=== PATIENT | female | born 1985 | race African-American/Black ===

== ENCOUNTER 2020-07-07 21:41 | Emergency (ER) | payer BC, SELFPAY ==
[2020-07-07 21:43] VITALS: BP 143/86; PULSE 109; RESP 18; TEMP 39.5; O2SAT 96; BMI 39.5
[2020-07-07 22:00] VITALS: BP 144/86; PULSE 112; O2SAT 94
[2020-07-07 22:30] VITALS: BP 126/73; PULSE 106; O2SAT 94
--- NOTE | 2020-07-07 22:45 | XR_ITS ---
PROCEDURE INFORMATION: Exam: XR Chest Exam date and time: 07/07/2020 10:45 PM Age: 35 years old Clinical indication: Condition or disease; Patient HX: Covid, body aches TECHNIQUE: Imaging protocol: XR of the chest. Views: 1 view. Total images: 1 COMPARISON: No relevant prior studies available. FINDINGS: Lungs: Nonspecific bibasilar opacities, concerning for pneumonia/atypical pneumonia, possibly COVID-19. Pleural spaces: Unremarkable. No pleural effusion. No pneumothorax. Heart/Mediastinum: Unremarkable. No cardiomegaly. Bones/joints: Unremarkable. IMPRESSION: Nonspecific bibasilar opacities, concerning for pneumonia/atypical pneumonia, possibly COVID-19.
[2020-07-07 23:00] LABS: Adenovirus,PCR Not Detected (NotDetected); Basophils # 0.1 K/mm3 (0-0.2); Basophils % 1.1 % (0.1-2.0); Bordetella Pertussis Not Detected (NotDetected); Chlamydophila Pneumoniae, PCR Not Detected (NotDetected); Coronavirus 229E Not Detected (NotDetected); Coronavirus NL63 Not Detected (NotDetected); Coronavirus OC43 Not Detected (NotDetected); Coronovirus HKU1,PCR Not Detected (NotDetected); Eosinophils % 0.2 % (0.1-12.0); Hemoglobin 13.5 g/dL (12.2-16.2); Human Metapneumovirus Not Detected (NotDetected); Influenza A, PCR Not Detected (NotDetected); Influenza AH1, 2009 Not Detected (NotDetected); Influenza AH1, PCR Not Detected (NotDetected); Influenza AH3,PCR Not Detected (NotDetected); Influenza B, PCR Not Detected (NotDetected); Lymphocytes # 0.7 K/mm3 (0.7-4.5); Lymphocytes % 15.1 % (10-50); Mean Corpuscular Hemoglobin 29.7 pg (27.0-31.2); Mean Platelet Volume 9.3 fl (7.4-10.4); Microscopic, Urine URINE MICROSCOPIC (MICROSCOPIC); Monocytes # 0.2 K/mm3 (0.1-1.0); Monocytes % 4.8 % (1.7-9.3); Mycoplasma Pneumoniae, PCR Not Detected (NotDetected); Neutrophils # 3.8 K/mm3 (1.8-7.8); Neutrophils % 78.8 % (37.0-80.0); Parainfluenza 1, PCR Not Detected (NotDetected); Parainfluenza 2, PCR Not Detected (NotDetected); Parainfluenza 3, PCR Not Detected (NotDetected); Parainfluenza 4, PCR Not Detected (NotDetected); Platelet Count 152 K/mm3 (142-424); Red Blood Count 4.55 M/mm3 (4.20-5.40); Respiratory Syncytial Virus Not Detected (NotDetected); Rhinovirus/Enterovirus Not Detected (NotDetected); White Blood Count 4.8 K/mm3 (4.8-10.8)
[2020-07-07 23:01] VITALS: BP 122/65; PULSE 113; O2SAT 94
[2020-07-07 23:03] LABS: Appearance,Urine CLEAR (Clear); Bilirubin,Urine Negative (Negative); Blood, Urine Negative (Negative); Color,Urine YELLOW (Yellow); Glucose,Urine (UA) Negative (Negative); Ketones,Urine Negative (Negative); Leukocyte Esterase,Urine Negative (Negative); Nitrate,Urine Negative (Negative); Protein,Urine Negative (Negative); Specific Gravity, Urine <= 1.005 (1.005-1.030); Urobilinogen,Urine 0.2 EU/dl (0.2)
[2020-07-07 23:04] LABS: Alanine Aminotransferase 32 U/L (12-78); Albumin Level 4.5 g/dl (3.5-5.0); Albumin/Globulin Ratio 1.4 (1.1-1.8); Alkaline Phosphatase 43 U/L (38-126); Anion Gap 11.2 mEq/L (5-15); Aspartate Amino Transferase 38 U/L (14-36); Bilirubin,Total 0.2 mg/dl (0.2-1.3); Blood Urea Nitrogen 5 mg/dl (7-17); Calcium 9.5 mg/dl (8.4-10.2); Carbon Dioxide 29 mmol/L (22.0-30.0); Chloride 101 mmol/L (98-107); Creatinine Clearance Estimated 211 mL/min (50-200); Estimated Glomerular Filt Rate 96 ml/min (>60); GFR (African American) 116 ML/MIN (>60); Globulin 3.3 g/dL (1.3-3.2); Glucose 112 mg/dl (74-100); Potassium 4.2 mmoL/L (3.5-5.1); Sodium 137 mmol/L (136-145); Total Protein,Serum 7.8 g/dl (6.3-8.2); Urine Pregnancy, HCG Qual. Negative (Negative)
[2020-07-07 23:09] LABS: C-Reactive Protein 48.8 mg/L (0-4)
[2020-07-07 23:15] LABS: Bacteria,Urine Trace /lpf; Squamous Epithelial Cell,Urine 50-100 #/hpf (0-5); WBC,Urine Occasional #/hpf (0-3)
[2020-07-07 23:24] LABS: Procalcitonin 1.91 ng/mL (0.0-2.0)
[2020-07-07 23:30] LABS: Erythrocyte Sedimentation Rate 34 mm/hr (0-20)
--- NOTE | 2020-07-07 23:39 | HMH.EDFEV ---
ED Disposition Clinical Impression: Acute COVID-19 Disposition: Home, Self-Care Condition on Discharge: Good Instructions: DI for COVID-19 (Suspected or Confirmed ) Additional Instructions: fluids and see pcp for follow up Referrals: Fernie Lee [Primary Care Provider] - - Critical Care Critical Care Time: No Attestation: On 07/07/20, the high probability of a clinically significant, sudden or life threatening deterioration of the following system(s) required my full and direct attention, intervention and personal management. The time I documented below is in addition to time spent performing reported procedures but includes the following listed in this critical care notation. Medical Decision Making - Medical Records Medical records reviewed: Yes: I reviewed the patient's medical records. - Blayne Inquiry Pt receiving controlled substance: No Vital Signs: 07/07/20 21:43 07/07/20 23:01 Temperature 103.1 F H Temperature Source Oral Pulse Rate 113 H Pulse Rate [Right Radial] 109 H Respiratory Rate 18 Blood Pressure 122/65 Blood Pressure [Right Arm] 143/86 H Blood Pressure Mean [Right Arm] 105 Blood Pressure Source [Right Arm] Automatic Cuff Blood Pressure Position [Right Arm] Sitting 02 Sat by Pulse Oximetry 96 94 L Oxygen Delivery Method Room Air - Lab Data Lab results reviewed: Yes: I reviewed the patient's lab results. Lab Results 07/07/20 22:04: WBC 4.8, RBC 4.55, Hgb 13.5, Hct 41.0, MCV 90.0, MCH 29.7, MCHC 33.0, RDW 13.0, Plt Count 152, MPV 9.3, Neut % (Auto) 78.8, Lymph % (Auto) 15.1, [place] % (Auto) 4.8, Eos % (Auto) 0.2, Baso % (Auto) 1.1, Neut # (Auto) 3.8, Lymph # (Auto) 0.7, [place] # (Auto) 0.2, Eos # (Auto) 0.0, Baso # (Auto) 0.1, ESR 34 H 07/07/20 22:04: Sodium 137, Potassium 4.2, Chloride 101, Carbon Dioxide 29, Anion Gap 11.2, BUN 5 L, Creatinine 0.70, Estimated Creat Clear 211, Estimated GFR 96, Est GFR ( Amer) 116, Glucose 112 H, Calcium 9.5, Total Bilirubin 0.2, AST 38 H, ALT 32, Alkaline Phosphatase 43, C-Reactive Protein 48.8 H, Total Protein 7.8, Albumin 4.5, Globulin 3.3 H, Albumin/Globulin Ratio 1.4 07/07/20 22:04: Procalcitonin 1.91 07/07/20 22:04: Urine Color Yellow, Urine Appearance Clear, Urine pH 7.0, Ur Specific [place] <= 1.005, Urine Protein Negative, Urine Glucose (UA) Negative, Urine Ketones Negative, Urine Blood Negative, Urine Nitrate Negative, Urine Bilirubin Negative, Urine Urobilinogen 0.2, Ur Leukocyte Esterase Negative, Urine RBC None, Urine WBC Occasional, Ur Squamous Epith Cells 50-100, Urine Bacteria Trace 07/07/20 22:04: Urine HCG, Qual Negative Result diagrams: 07/07/20 22:04 07/07/20 22:04 Orders (Tests/Meds): ED MEDICATIONS Generic Name Dose Route Start Last Admin Trade Name Freq PRN Reason Stop Dose Admin Sodium Chloride 1,000 mls @ 999 mls/hr 07/07/20 22:45 07/07/20 22:45 Sod Chlor 0.9% 1000ml Bag IV 07/07/20 23:45 999 mls/hr .Q1H1M MASSIMO Administration Sodium Chloride 1,000 mls @ 999 mls/hr 07/07/20 23:45 07/07/20 23:47 Sod Chlor 0.9% 1000ml Bag IV 07/08/20 00:45 999 mls/hr .Q1H1M MASSIMO Administration Discontinued Medications Generic Name Dose Route Start Last Admin Trade Name Freq PRN Reason Stop Dose Admin Acetaminophen 1,000 mg 07/07/20 22:47 07/07/20 22:45 Acetaminophen 500mg Tab PO 07/07/20 22:48 1,000 mg ONCE ONE Administration Dexamethasone Sodium Phosphate 8 mg 07/07/20 22:45 07/07/20 23:57 Dexamethasone 4mg/Ml 1ml Vial IV 07/07/20 22:46 Not Given ONCE ONE Dexamethasone Sodium Phosphate 10 mg 07/07/20 22:45 07/07/20 22:45 Dexamethasone 4mg/Ml 5ml Mdv IV 07/07/20 22:46 10 mg ONCE ONE Administration Ibuprofen 600 mg 07/07/20 22:45 07/07/20 22:45 Ibuprofen 600 Mg Tablet PO 07/07/20 22:46 600 mg ONCE ONE Administration Ketorolac Tromethamine 30 mg 07/07/20 22:45 07/07/20 22:45 Ketorolac 30mg/Ml Vial IV 07/07/20 22:46 30 mg ONCE ONE Admini
[2020-07-08 00:26] VITALS: BP 112/65; PULSE 91; RESP 18; TEMP 37.2; O2SAT 96
[2020-07-08 00:32] LABS: Coronavirus 19, PCR Detected (NotDetected)
== END 2020-07-08 00:26 | disposition home or self-care (01) ==
PROVIDERS: Emergency Provider Emergency Medicine; PCP Nurse Practitioner Family
DX: U07.1 COVID-19 (principal)
CPT/HCPCS: 71045; 80053; 81001; 81025; 84145; 85025; 85651; 86140; 87581; 87633; 87798; 96365; 96366; 96375; 99283; J2405

== ENCOUNTER 2021-03-14 08:55 | Emergency (ER) | payer BC, SELFPAY ==
[2021-03-14 08:56] VITALS: BP 165/105; PULSE 93; RESP 16; TEMP 37.1; O2SAT 97; BMI 40.1
--- NOTE | 2021-03-14 09:10 | US_ITS ---
PROCEDURE INFORMATION: Exam: US Right Breast Limited Exam date and time: 03/14/2021 9:10 AM Age: 36 years old Clinical indication: Breast pain; Right; Additional info: Subq mass 1 month 5:00 outer position TECHNIQUE: Imaging protocol: Limited ultrasound of Right breast with image documentation, including axilla when performed. Exam focused on the search and evaluation for mass. COMPARISON: No relevant prior studies available. FINDINGS: Breast: Sonographic images of the right breast including the retroareolar region, all 4 quadrants and the axilla do not demonstrate any suspicious solid or cystic masses. Cursors were placed over what appears to be a prominent fat lobule in the 5 o'clock axis corresponding to the patient's complaint of a palpable abnormality. The area of interest measures 5.6 x 4.9 x 1.8 cm in dimension. It is possible the finding represents a lipoma. No architectural distortion or acoustical shadowing. No skin thickening or axillary adenopathy. IMPRESSION: A skin marker should be placed over the area of palpable concern followed by a diagnostic unilateral mammogram with spot compression views for full evaluation of the patient's complaint of a palpable abnormality. ASSESSMENT: BI-RADS Category 0: Incomplete- Need Additional Imaging Evaluation and/or Prior Mammograms for Comparison
--- NOTE | 2021-03-14 09:11 | ED_ITS ---
ED Disposition Clinical Impression: Breast mass in female, Elevated blood pressure reading Disposition: Home, Self-Care Condition on Discharge: Good Instructions: DI for Breast Mass -- Uncertain Cause, Essential Hypertension Additional Instructions: follow up general surgery Referrals: Fernie Lee [Primary Care Provider] - Matt Epperson MD [Staff Physician] - - Critical Care Critical Care Time: No Attestation: On , the high probability of a clinically significant, sudden or life threatening deterioration of the following system(s) required my full and direct attention, intervention and personal management. The time I documented below is in addition to time spent performing reported procedures but includes the following listed in this critical care notation. Medical Decision Making - Blayne Inquiry Pt receiving controlled substance: No Vital Signs: 03/14/21 08:56 Temperature 98.8 F Temperature Source Oral Pulse Rate [Radial] 93 H Respiratory Rate 16 Blood Pressure [Right Arm] 165/105 H Blood Pressure Mean [Right Arm] 125 Blood Pressure Position [Right Arm] Sitting 02 Sat by Pulse Oximetry 97 Oxygen Delivery Method Room Air Orders (Tests/Meds): ORDERS Category Date Time Status US breast RT limited Stat Exams 03/14/21 09:10 Ordered General Adult HPI - General Stated complaint: hard knot under right breast Time Seen by Provider: 03/14/21 09:11 Source of Information: Patient Limitations: No Limitations - History of Present Illness HPI narrative: rt breast mass 1 month Radiation: non-radiation Severity: mild Quality: constant Consistency: constant Relieving factors: none Exacerbating factors: none Associated symptoms: denies other symptoms - Related Data Allergies Allergy/AdvReac Type Severity Reaction Status Date / Time No Known Allergies Allergy Verified 07/07/20 22:29 [facility] History - Hepatitis A Screen Attestation statement:: This patient has been screened for Hepatitis A risk factors. ROS Obtained: Yes All systems reviewed & no additional complaints Physical Exam - General General appearance: alert, in no apparent distress - Chest Chest inspection: Present: other (rt medial inferior breast subq immobile mass non tender firm) - Respiratory Respiratory exam: Present: normal lung sounds bilaterally. Absent: respiratory distress, wheezes - Cardiovascular Cardiovascular exam: Present: regular rate, normal rhythm. Absent: bradycardia - Neurological Exam Neurological exam: Present: alert, oriented X3, CN II-XII intact - Skin Skin exam: Present: warm, intact, normal color. Absent: rash
[2021-03-14 09:59] VITALS: BP 142/74; PULSE 100; RESP 16; TEMP 36.6; O2SAT 98
== END 2021-03-14 10:01 | disposition home or self-care (01) ==
PROVIDERS: Emergency Provider Emergency Medicine; PCP Nurse Practitioner Family
DX: N63.0 Unspecified lump in unspecified breast (principal)
CPT/HCPCS: 76642; 99282

== ENCOUNTER → 2021-03-27 10:34 | Outpatient (CLI) | payer BC, SELFPAY ==
[2021-03-27 11:41] LABS: Basophils # 0.1 K/mm3 (0-0.2); Basophils % 0.8 % (0.1-2.0); Eosinophils # 0.2 K/mm3 (0.0-0.4); Eosinophils % 2.9 % (0.1-12.0); Hematocrit 41.1 % (37.0-47.0); Hemoglobin 13.2 g/dL (12.2-16.2); Lymphocytes # 1.8 K/mm3 (0.7-4.5); Lymphocytes % 22.5 % (10-50); Mean Corpuscular HGB Conc 32.1 g/dL (31.8-35.4); Mean Corpuscular Hemoglobin 30.1 pg (27.0-31.2); Mean Corpuscular Volume 93.9 fl (81-99); Monocytes # 0.6 K/mm3 (0.1-1.0); Monocytes % 7.5 % (1.7-9.3); Neutrophils # 5.4 K/mm3 (1.8-7.8); Neutrophils % 66.2 % (37.0-80.0); Platelet Count 265 K/mm3 (142-424); Red Blood Count 4.37 M/mm3 (4.20-5.40); Red Cell Distribution Width 13.5 % (11.5-17.5); White Blood Count 8.1 K/mm3 (4.8-10.8)
[2021-03-27 11:58] LABS: Chloride 104 mmol/L (98-107); Sodium 138 mmol/L (136-145)
[2021-03-27 11:59] LABS: Potassium 4.2 mmoL/L (3.5-5.1)
[2021-03-27 12:02] LABS: Anion Gap 8.2 mEq/L (5-15); Blood Urea Nitrogen 13 mg/dl (7-17); Calcium 9.4 mg/dl (8.4-10.2); Carbon Dioxide 30 mmol/L (22.0-30.0); Estimated Glomerular Filt Rate 114 ml/min (>60); GFR (African American) 138 ML/MIN (>60); Glucose 104 mg/dl (74-100)
== END ==
PROVIDERS: Visit Provider Surgery
DX: Z01.812 Encounter for preprocedural laboratory examination (principal); U07.1 COVID-19; D17.1 Benign lipomatous neoplasm of skin and subcutaneous tissue of trunk
CPT/HCPCS: 36415; 80048; 85025; C9803; U0003; U0005

== ENCOUNTER 2021-04-18 08:31 | Day surgery (SDC) | payer BC, SELFPAY ==
[2021-03-25 09:56] VITALS: BMI 39.4
[2021-03-27 15:15] LABS: HCG Qualitative, Serum Negative (Negative)
[2021-04-18] VITALS (11 sets, daily range): BP systolic 121–142; BP diastolic 50–90; PULSE 73–100; RESP 14–18; TEMP 36.2–36.9; O2SAT 96–99
[2021-04-18 08:47] LABS: Urine Pregnancy, HCG Qual. Negative (Negative)
--- NOTE | 2021-04-18 09:03 | HMH.ANESCL ---
[facility] Anesthesia Checklist - Patient Identification Patient Identification: Arm Band - Structural Data Admitted From: Home Planned Operative Procedure/s: Excision lipoma R chest wall Consent for Planned Operative Procedure(s) Verified: Yes - NPO Status Verified Time NPO: 00:00 - Additional verifications Anesthesia Reactions: No Hx Blood Transfusions: No Blood Transfusion Reaction: No - Airway Assessment C-Spine Mobility Assessed: Yes TMJ Mobility Assessed: Yes Dentition: Good Dentition - Neurological Assessment Level of Consciousness: Awake Hx Seizures: No Numbness or tingling in extremities: No - Anesthesia Plan Anesthesia Risk discussed: Yes Anesthesia Plan: Verified ASA Class: II Anesthesia Type: General [facility] History I have reviewed the patient's past medical history: Yes Medical History: Reports:: Hypertension Denies:: Cancer, Diabetes Mellitus Type 1, Diabetes Mellitus Type 2, Internal Pacemaker, MRSA, Seizures *Have you ever received a pneumonia vaccine?: No *Have you received a flu vaccine this season?: Yes Other Medical History: Denies: Blood Transfusion Reaction Anesthesia experience/problems:: None Other Surgeries: Yes: No Previous Surgery. No: Pacemaker Amputation: No Fractures: No - *Social History Last grade of school completed: Advanced degree Smoking Status: Current some day smoker Tobacco Type: cigarettes # Packs/Day (cigarettes): 1 Alcohol Intake: never Alcohol Intake Frequency:: a few times a month Substance Use Type: denies use *Occupational Status:: employed Housing: house *Travel in the last 8 weeks: None Family Hx:: No significant family history
--- NOTE | 2021-04-18 10:10 | P.OP_ITS ---
Date of procedure: 04/18/21 Pre-op Diagnosis:: Right chest lipoma (6cm) Post-op Diagnosis:: Same Procedure performed:: Excision of 6 cm right chest lipoma Surgeon:: Matt Epperson MD Offset Press Operator Apprentice(s):: Mandy Anesthesia: LMA Estimated blood loss (mL): 10 Operative findings:: Deep subcutaneous tissue lipomatous lesion excised in toto Operative note:: After informed consent was obtained the patient was taken to the operating room and placed in the supine position. General anesthesia with laryngeal mask airway was achieved. Her right chest was prepped and draped in a sterile fashion. After infiltration local anesthetic a slightly curvilinear incision was made overlying the palpable lesion (inferior/medial breast margin). The deep subcutaneous tissue was dissected with a combination of electrocautery and blunt dissection. A lipomatous lesion was carefully elevated and excised in toto. The lesion was passed off for pathologic evaluation. Electrocautery was utilized to achieve hemostasis. The deep subcutaneous tissue was reapproximated with interrupted 2-0 Vicryl. Skin was then closed with running 3-0 Stratafix. Dressings were applied and the patient was transferred to recovery in stable condition after removal of her laryngeal mask airway. Condition: stable Disposition: PACU Specimens:: Right chest lipoma Complications:: No immediate
--- NOTE | 2021-04-18 10:20 | P.PN_ITS ---
[facility] Anesthesia Record Part I Intake, IV Amount: 700 Estimated blood loss (mL): 5 Urine output (mL): 0 Blood Pressure: 121/50 SaO2: 98 Pulse Rate: 100 Respiratory Rate: 14 Temperature: 97.1 F Patient is:: Awake Stable to PACU at:: 10:19
--- NOTE | 2021-04-18 10:55 | SUR.PHASEI ---
1048- detailed report called to armond johnson in post op
--- NOTE | 2021-04-18 11:43 | HMH.ANESII ---
[facility] Anesthesia Record Part II Discharge Time: 10:49 Destination: Surgical Day Care (OP Surgery) PACU nurse assessment reviewed?: Yes Patient Condition:: Good Anesthesia Complications:: None Swallowing reflex intact?: Yes Cyanosis?: No Blood Pressure: 133/90 Pulse Rate: 85 Temperature: 97.5 F Mental Status: Alert & Oriented Pain level:: 0 Nausea and/or vomitting:: None Intake, IV Amount: 0
== END 2021-04-18 11:46 | disposition home or self-care (01) ==
LOC: OR 08:32
PROVIDERS: PCP Nurse Practitioner Family; Visit Provider Surgery
PROC: (CPT 11406; principal; 2021-04-18 10:00)
DX: D17.1 Benign lipomatous neoplasm of skin and subcutaneous tissue of trunk (principal); I10 Essential (primary) hypertension; Z72.0 Tobacco use; Z88.8 Allergy status to other drugs, medicaments and biological substances; Z79.899 Other long term (current) drug therapy
CPT/HCPCS: 11406; 12031; 81025; 84703; 96374; J2405

== ENCOUNTER 2021-05-06 19:49 | Emergency (ER) | payer BC, SELFPAY ==
[2021-05-06 19:50] VITALS: BP 147/102; PULSE 81; RESP 18; TEMP 37.3; O2SAT 97; BMI 40.3
[2021-05-06 20:40] LABS: Microscopic, Urine URINE MICROSCOPIC (MICROSCOPIC)
[2021-05-06 20:45] LABS: Appearance,Urine CLEAR (Clear); Bilirubin,Urine Negative (Negative); Blood, Urine Negative (Negative); Color,Urine YELLOW (Yellow); Glucose,Urine (UA) Negative (Negative); Ketones,Urine Negative (Negative); Leukocyte Esterase,Urine Negative (Negative); Nitrate,Urine Negative (Negative); PH,Urine 7.5 (5.0-8.5); Protein,Urine Negative (Negative); Urobilinogen,Urine 0.2 EU/dl (0.2)
--- NOTE | 2021-05-06 20:46 | HMH.EDUROGF ---
ED Disposition Clinical Impression: Vaginal foreign body Qualifiers: Encounter type: initial encounter Qualified Code(s): T19.2XXA - Foreign body in vulva and vagina, initial encounter Disposition: Home, Self-Care Condition on Discharge: Good Instructions: DI for Foreign Body in Vagina-Adult Additional Instructions: call pcp as needed Referrals: Fernie Lee [Primary Care Provider] - - Critical Care Critical Care Time: No Attestation: On 05/06/21, the high probability of a clinically significant, sudden or life threatening deterioration of the following system(s) required my full and direct attention, intervention and personal management. The time I documented below is in addition to time spent performing reported procedures but includes the following listed in this critical care notation. Medical Decision Making - Medical Records Medical records reviewed: Yes: I reviewed the patient's medical records. - Blayne Inquiry Pt receiving controlled substance: No Vital Signs: 05/06/21 19:50 Temperature 99.1 F Temperature Source Oral Pulse Rate [Right] 81 Respiratory Rate 18 Blood Pressure [Right Arm] 147/102 H Blood Pressure Mean [Right Arm] 117 02 Sat by Pulse Oximetry 97 - Lab Data Lab results reviewed: Yes: I reviewed the patient's lab results. Lab Results 05/06/21 20:23: Urine Color Yellow, Urine Appearance Clear, Urine pH 7.5, Ur Specific [place] 1.020, Urine Protein Negative, Urine Glucose (UA) Negative, Urine Ketones Negative, Urine Blood Negative, Urine Nitrate Negative, Urine Bilirubin Negative, Urine Urobilinogen 0.2, Ur Leukocyte Esterase Negative, Urine WBC 3-5, Ur Squamous Epith Cells Tntc, Urine Bacteria 1+, Urine Mucus 1+ 05/06/21 20:23: Urine HCG, Qual Negative 05/06/21 20:47: WBC 6.0, RBC 4.74, Hgb 14.4, Hct 44.9, MCV 94.7, MCH 30.3, MCHC 32.0, RDW 13.6, Plt Count 275, MPV 9.5, Neut % (Auto) 66.0, Lymph % (Auto) 25.4, [place] % (Auto) 5.6, Eos % (Auto) 1.3, Baso % (Auto) 1.6, Neut # (Auto) 4.0, Lymph # (Auto) 1.5, [place] # (Auto) 0.3, Eos # (Auto) 0.1, Baso # (Auto) 0.1 05/06/21 20:47: Sodium 137, Potassium 4.0, Chloride 103, Carbon Dioxide 26, Anion Gap 12.0, BUN 9, Creatinine 0.70, Estimated Creat Clear 213, Estimated GFR 95, Est GFR ( Amer) 115, Glucose 116 H, Calcium 9.2, Total Bilirubin 0.4, AST 33, ALT 31, Alkaline Phosphatase 48, Total Protein 7.9, Albumin 4.6, Globulin 3.3 H, Albumin/Globulin Ratio 1.4 05/06/21 20:47: Lactate 1.1 Result diagrams: 05/06/21 20:47 05/06/21 20:47 Orders (Tests/Meds): ED MEDICATIONS Generic Name Dose Route Start Last Admin Trade Name Freq PRN Reason Stop Dose Admin Sodium Chloride 1,000 mls @ 999 mls/hr 05/06/21 20:45 05/06/21 20:53 Sod Chlor 0.9% 1000ml Bag IV 05/06/21 21:45 999 mls/hr .Q1H1M MASSIMO Administration Discontinued Medications Generic Name Dose Route Start Last Admin Trade Name Freq PRN Reason Stop Dose Admin Ketorolac Tromethamine 30 mg 05/06/21 20:33 05/06/21 20:53 Ketorolac 30mg/Ml Vial IV 05/06/21 20:34 30 mg ONCE ONE Administration Ondansetron HCl 4 mg 05/06/21 20:33 05/06/21 20:53 Ondansetron 4mg/2ml Vial IV 05/06/21 20:34 4 mg ONCE ONE Administration ORDERS Category Date Time Status C-Reactive Protein Stat Lab 05/06/21 20:47 Results Complete Blood Count Auto Diff Stat Lab 05/06/21 20:47 Results Comprehensive Metabolic Panel Stat Lab 05/06/21 20:47 Results Erythrocyte Sedimentation Rate Stat Lab 05/06/21 20:47 Results Procalcitonin Stat Lab 05/06/21 20:47 Results Blood Culture Stat Micro 05/06/21 20:47 Received Medical Decision Narrative: no vaginal fb and stable labs and exam Female Urogenital HPI - General Chief complaint: Urogenital-Female Stated complaint: tampon toxic shock syndrome Time Seen by Provider: 05/06/21 20:46 Mode of Arrival: Ambulatory Source of Information: Patient, Medical Record Limitations: No Limitations Description of Symptoms (Re
[2021-05-06 20:54] LABS: Basophils # 0.1 K/mm3 (0-0.2); Basophils % 1.6 % (0.1-2.0); Eosinophils # 0.1 K/mm3 (0.0-0.4); Eosinophils % 1.3 % (0.1-12.0); Hematocrit 44.9 % (37.0-47.0); Hemoglobin 14.4 g/dL (12.2-16.2); Lymphocytes # 1.5 K/mm3 (0.7-4.5); Lymphocytes % 25.4 % (10-50); Mean Corpuscular Hemoglobin 30.3 pg (27.0-31.2); Mean Corpuscular Volume 94.7 fl (81-99); Mean Platelet Volume 9.5 fl (7.4-10.4); Monocytes # 0.3 K/mm3 (0.1-1.0); Monocytes % 5.6 % (1.7-9.3); Platelet Count 275 K/mm3 (142-424); Red Blood Count 4.74 M/mm3 (4.20-5.40); Red Cell Distribution Width 13.6 % (11.5-17.5)
[2021-05-06 20:55] LABS: Urine Pregnancy, HCG Qual. Negative (Negative)
[2021-05-06 21:04] LABS: Bacteria,Urine 1+ /lpf; Mucus,Urine 1+ /lpf; Squamous Epithelial Cell,Urine TNTC #/hpf (0-5)
--- NOTE | 2021-05-06 21:05 | PC.NURSE ---
dr wills @ bedside to perform pelvic exam
[2021-05-06 21:18] LABS: Alanine Aminotransferase 31 U/L (12-78); Albumin Level 4.6 g/dl (3.5-5.0); Albumin/Globulin Ratio 1.4 (1.1-1.8); Alkaline Phosphatase 48 U/L (38-126); Aspartate Amino Transferase 33 U/L (14-36); Bilirubin,Total 0.4 mg/dl (0.2-1.3); Blood Urea Nitrogen 9 mg/dl (7-17); Calcium 9.2 mg/dl (8.4-10.2); Carbon Dioxide 26 mmol/L (22.0-30.0); Chloride 103 mmol/L (98-107); Creatinine Clearance Estimated 213 mL/min (50-200); Estimated Glomerular Filt Rate 95 ml/min (>60); GFR (African American) 115 ML/MIN (>60); Globulin 3.3 g/dL (1.3-3.2); Glucose 116 mg/dl (74-100); Sodium 137 mmol/L (136-145); Total Protein,Serum 7.9 g/dl (6.3-8.2)
[2021-05-06 21:19] LABS: Lactic Acid 1.1 mmol/L (0.7-2.1)
[2021-05-06 21:23] LABS: C-Reactive Protein 4.1 mg/L (0-4)
[2021-05-06 21:37] LABS: Erythrocyte Sedimentation Rate 58 mm/hr (0-20)
[2021-05-06 21:40] LABS: Procalcitonin < 0.030 ng/mL (0.0-2.0)
[2021-05-06 21:48] VITALS: BP 134/97; PULSE 80; RESP 18; TEMP 37.2; O2SAT 97
== END 2021-05-06 21:49 | disposition home or self-care (01) ==
PROVIDERS: Emergency Provider Emergency Medicine; PCP Nurse Practitioner Family
DX: T19.2XXA Foreign body in vulva and vagina, initial encounter (principal); R53.82 Chronic fatigue, unspecified; R11.2 Nausea with vomiting, unspecified; R19.7 Diarrhea, unspecified; I10 Essential (primary) hypertension; F17.210 Nicotine dependence, cigarettes, uncomplicated; Z79.899 Other long term (current) drug therapy; Z88.8 Allergy status to other drugs, medicaments and biological substances
CPT/HCPCS: 80053; 81001; 81025; 83605; 84145; 85025; 85651; 86140; 87040; 96361; 96365; 96374; 96375; 99283; 99284; J2405

== ENCOUNTER 2021-10-17 08:00 | Outpatient (RCR) | payer BC, SELFPAY ==
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
== END 2021-10-17 09:15 | disposition home or self-care (01) ==
LOC: PT 08:00
PROVIDERS: PCP Nurse Practitioner Family; Visit Provider Nurse Practitioner Family
DX: M54.50 Low back pain, unspecified (principal)
CPT/HCPCS: 97010; 97014; 97110; 97163; G0283

== ENCOUNTER 2021-11-21 15:40 | Emergency (ER) | payer BC, SELFPAY ==
[2021-11-21 16:40] VITALS: BP 149/83; PULSE 77; RESP 18; TEMP 36.5; O2SAT 98; BMI 39.4
--- NOTE | 2021-11-21 16:49 | EXP.UTC ---
Discharge Plan Disposition Patient Disposition: Home, Self-Care Condition: Good Prescriptions Prescriptions: No Action omeprazole 40 mg capsule,delayed release(DR/EC) 40 mg PO DAILY Qty: 90 0RF spironolactone 50 mg tablet 50 mg PO DAILY Qty: 90 0RF lisinopril 5 mg tablet 5 mg PO DAILY Qty: 30 2RF quetiapine [Seroquel] 25 mg tablet 25 mg PO DAILY Qty: 30 2RF methocarbamol 750 mg tablet 750 mg PO TID Qty: 90 0RF cetirizine [Zyrtec] 10 mg tablet 10 mg PO DAILY PRN (Reason: allergy symptoms) Qty: 30 3RF fluticasone propionate [Flonase Allergy Relief] 50 mcg/actuation spray,suspension 1 spray intranasal DAILY Qty: 16 2RF Rx Instructions: administer into each nostril prednisone 20 mg tablet 20 mg PO BID 5 Days Qty: 10 0RF Referrals Follow up/Referrals: Phong Aldrich APRN [Primary Care Provider] - See instructions Clinical Impressions Clinical Impression: Pain in head Discharge ED Provider: Nidia Garcia [facility] General Stated complaint: head pain, dizzy Time Seen by Provider: 11/21/21 16:49 History of Present Illness Provider Complaint: Patient states that she has history of migraine headaches States that this is unlike any of her other migraines and probably the worse one in her life States that her head doesnt feel right states that she has been having pain in her head blurred vision and blacking out for about 2 weeks but worse in the last 2-3 days States that she has driven home and doesnt recall how she got there States that she has took her migraine medication but nothing is working and today the pain was worse, having blurry vision again and dizziness so she came in Related Data Previous Rx's Medication Instructions Recorded omeprazole 40 mg capsule,delayed 40 mg PO DAILY #90 caps 07/24/21 release spironolactone 50 mg tablet 50 mg PO DAILY BP #90 tabs 07/24/21 lisinopril 5 mg tablet 5 mg PO DAILY #30 tabs 09/18/21 quetiapine 25 mg tablet (Seroquel) 25 mg PO DAILY #30 tabs 09/18/21 methocarbamol 750 mg tablet 750 mg PO TID #90 tabs 10/19/21 cetirizine 10 mg tablet (Zyrtec) 10 mg PO DAILY PRN allergy 11/20/21 symptoms #30 tabs fluticasone propionate 50 1 spray intranasal DAILY #16 grams 11/20/21 mcg/actuation nasal spray,suspension (Flonase Allergy Relief) prednisone 20 mg tablet 20 mg PO BID 5 days #10 tabs 11/20/21 Allergies Allergy/AdvReac Type Severity Reaction Status Date / Time metaxalone Allergy Verified 11/20/21 14:43 [facility] Medical History (Updated 11/21/21 @ 16:55 by Nidia Garcia APRN) Low back pain Social History Smoking Status: Former smoker alcohol intake: never substance use type: denies use current occupational status: employed Travel in the last 8 weeks: None housing: house caffeine: Yes ROS Obtained: Yes All systems reviewed & no additional complaints except as documented and Yes Systems reviewed as appropriate & no additional complaints except as documented Constitutional Constitutional: Reports system reviewed and no additional complaints, except as documented, Reports as per HPI, Reports headache(s) and Reports weakness ENT Ears, Nose, Mouth, and Throat: Reports system reviewed and no additional complaints, except as documented, Reports dizziness and Reports headache(s) Cardiovascular Cardiovascular: Reports system reviewed and no additional complaints, except as documented and Reports as per HPI Respiratory Respiratory: Reports system reviewed and no additional complaints, except as documented and Reports as per HPI Neurologic Neurologic: Reports system reviewed and no additional complaints, except as documented, Reports as per HPI, Reports dizziness, Reports headache(s), Reports weakness and Reports other (reports blacking out ) Physical Exam General General appearance: alert and in no apparent distress Respiratory Respiratory exam: Present normal lung sounds bilaterally; Absent r
[2021-11-21 17:10] VITALS: BP 149/90; PULSE 76; RESP 18; TEMP 36.4; O2SAT 100; BMI 39.4
[2021-11-21 17:27] VITALS: BMI 39.4
--- NOTE | 2021-11-21 17:29 | CT_ITS ---
PROCEDURE INFORMATION: Exam: CT Head Without Contrast Exam date and time: 11/21/2021 5:28 PM Age: 36 years old Clinical indication: Pain; Other: Dizziness; Additional info: Pain/dizziness TECHNIQUE: Imaging protocol: Computed tomography of the head without contrast. Radiation optimization: All CT scans at this facility use at least one of these dose optimization techniques: automated exposure control; mA and/or kV adjustment per patient size (includes targeted exams where dose is matched to clinical indication); or iterative reconstruction. COMPARISON: No relevant prior studies available. FINDINGS: Brain: Normal. No hemorrhage. Unremarkable white matter. No mass effect. Cerebral ventricles: No ventriculomegaly. Paranasal sinuses: Visualized sinuses are unremarkable. No fluid levels. Mastoid air cells: Visualized mastoid air cells are well aerated. Bones/joints: Unremarkable. No acute fracture. Soft tissues: Unremarkable. IMPRESSION: No acute intracranial abnormality.
[2021-11-21 17:45] LABS: Basophils # 0.1 K/mm3 (0-0.2); Basophils % 0.5 % (0.1-2.0); Eosinophils # 0.1 K/mm3 (0.0-0.4); Eosinophils % 0.5 % (0.1-12.0); Hematocrit 41.3 % (37.0-47.0); Hemoglobin 13.4 g/dL (12.2-16.2); Lymphocytes # 1.1 K/mm3 (0.7-4.5); Lymphocytes % 9.3 % (10-50); Mean Corpuscular HGB Conc 32.4 g/dL (31.8-35.4); Mean Corpuscular Hemoglobin 30.1 pg (27.0-31.2); Mean Platelet Volume 9.3 fl (7.4-10.4); Monocytes # 0.6 K/mm3 (0.1-1.0); Monocytes % 4.9 % (1.7-9.3); Neutrophils # 9.8 K/mm3 (1.8-7.8); Neutrophils % 84.8 % (37.0-80.0); Platelet Count 318 K/mm3 (142-424); Red Blood Count 4.44 M/mm3 (4.20-5.40); Red Cell Distribution Width 13.3 % (11.5-17.5); White Blood Count 11.6 K/mm3 (4.8-10.8)
[2021-11-21 17:47] LABS: Alanine Aminotransferase 30 U/L (12-78); Albumin Level 4.3 g/dl (3.5-5.0); Albumin/Globulin Ratio 1.4 (1.1-1.8); Alkaline Phosphatase 61 U/L (38-126); Anion Gap 15.6 mEq/L (5-15); Aspartate Amino Transferase 29 U/L (14-36); Blood Urea Nitrogen 9 mg/dl (7-17); Calcium 9.2 mg/dl (8.4-10.2); Carbon Dioxide 24 mmol/L (22.0-30.0); Chloride 102 mmol/L (98-107); Creatinine Clearance Estimated 250 mL/min (50-200); Estimated Glomerular Filt Rate 114 ml/min (>60); GFR (African American) 138 ML/MIN (>60); Globulin 3.1 g/dL (1.3-3.2); Glucose 136 mg/dl (74-100); Potassium 3.6 mmoL/L (3.5-5.1); Sodium 138 mmol/L (136-145); Total Protein,Serum 7.4 g/dl (6.3-8.2)
[2021-11-21 17:49] VITALS: BP 127/72; PULSE 69; O2SAT 98
[2021-11-21 17:50] LABS: Bilirubin,Total < 0.1 mg/dl (0.2-1.3)
--- NOTE | 2021-11-21 18:17 | HMH.EDGENADL ---
Discharge Plan Disposition Patient Disposition: Home, Self-Care Condition: Good Prescriptions Prescriptions: New yfxwttejqs-cosoosrmxxuoo-kvhk [Fioricet] 50-300-40 mg capsule 1 cap PO Q4H PRN (Reason: Headache) Qty: 10 0RF No Action omeprazole 40 mg capsule,delayed release(DR/EC) 40 mg PO DAILY Qty: 90 0RF spironolactone 50 mg tablet 50 mg PO DAILY Qty: 90 0RF lisinopril 5 mg tablet 5 mg PO DAILY Qty: 30 2RF methocarbamol 750 mg tablet 750 mg PO TID Qty: 90 0RF cetirizine [Zyrtec] 10 mg tablet 10 mg PO DAILY PRN (Reason: allergy symptoms) Qty: 30 3RF fluticasone propionate [Flonase Allergy Relief] 50 mcg/actuation spray,suspension 1 spray intranasal DAILY Qty: 16 2RF Rx Instructions: administer into each nostril prednisone 20 mg tablet 20 mg PO BID 5 Days Qty: 10 0RF Referrals Follow up/Referrals: Phong Aldrich APRN [Primary Care Provider] - See instructions Activity Restrictions/Add. Instructions Additional Instructions/Restrictions: Fioricet as needed for headache. Follow-up with neurology, Dr. Escudero, call for appointment. Additional instructions for HEADACHE: See your physician as soon as possible for further evaluation. Return immediately if worsening headache, vomiting, problems with vision or speech, fever, numbness or weakness of the extremities, neck pain or stiffness. Additional instructions for CONTROLLED SUBSTANCES: You have been prescribed a medication that is a controlled substance. Controlled substances include pain medications known as opiates and sedative nerve medications known as benzodiazepines. Tramadol, fioricet, and gabapentin are also controlled substances. Some common opiates include: Codeine (such as Tylenol #3) Hydrocodone (Vicodin, Lortab, Lorcet, [place]) Oxycodone (Percocet, Percodan, Oxycodone, Oxy IR) Some common benzodiazepines include: Diazepam (Valium) Lorazepam (Ativan) Alprazolam (Xanax) Clonazepam (Klonopin) Oxazepam (Serax) All of these controlled substances are highly addictive and frequently abused. Misuse can and frequently does lead to addiction as well as overdose and . Medication should be stored in a locked cabinet or other secure storage unit. Do not store the medication in a motor vehicle. Short term supplies, 3 days or less, are prescribed because of the highly addictive nature of the medication. Any of the controlled substance medication NOT taken should be disposed of properly and NOT SAVED. The recommended method of disposing of unused medications is: Place the medicines in a sealable plastic bag. If the medicine is a solid, crush it or add water to dissolve it. Add something undesirable (cat litter, coffee grounds, etc.) Dispose of sealed bag in household trash Do not flush or pour unused medicines down a sink or drain. Controlled substances should not be shared, given away or sold. Because of the addictive nature and frequent abuse, these medications are sometimes stolen. These medications should be kept in a safe place where they cannot be stolen. Do not keep them in your car or purse. Lost or stolen prescriptions for controlled substances WILL NOT BE REFILLED in this emergency department, regardless of whether a police report was filed. Clinical Impressions Clinical Impression: Headache Discharge ED Provider: Travon Whitley General Adult HPI General Chief complaint: Headache Stated complaint: head pain, dizzy Time Seen by Provider: 11/21/21 18:17 Mode of Arrival: Wheelchair Source of Information: Patient Limitations: No Limitations Description of Symptoms (Recalled from ER Triage Doc. by RN): c/o headache for 2 weeks with increasing pain yesterday and passing out with nausea. hx of migraines but this one feels different History of Present Illness HPI narrative: The patient is sent from the urgent treatment center. Complains of bad migraines. States that she has a
[2021-11-21 19:09] VITALS: BP 127/72; PULSE 69; RESP 18; TEMP 36.5; O2SAT 98
== END 2021-11-21 19:15 | disposition home or self-care (01) ==
LOC: UTC 16:49 → ER 16:50
PROVIDERS: Emergency Provider Emergency Medicine; PCP Nurse Practitioner Family
DX: R51.9 Headache, unspecified (principal)
CPT/HCPCS: 70450; 80053; 85025; 96365; 96375; 99284

== ENCOUNTER 2021-12-05 08:31 | Emergency (ER) | payer BC, SELFPAY ==
[2021-12-05] VITALS (7 sets, daily range): BP systolic 93–152; BP diastolic 45–94; PULSE 64–96; RESP 17–18; TEMP 36.7–36.8; O2SAT 96–100; BMI 39.5
--- NOTE | 2021-12-05 08:50 | PC.NURSE ---
checked on pt at this time, pt has already been given warm blanket. Call light hooked on bed rail instructed pt to use call light for any needs. Pt verbalized understanding.
--- NOTE | 2021-12-05 08:56 | PC.NURSE ---
pt unable to urinate at this time. will try again to attempt to collect specimen
--- NOTE | 2021-12-05 08:57 | PC.NURSE ---
IV established and blood sent to the lab
--- NOTE | 2021-12-05 08:59 | PC.NURSE ---
at the bedside
--- NOTE | 2021-12-05 09:05 | HMH.EDGENADL ---
Discharge Plan Disposition Patient Disposition: Home, Self-Care Condition: Good Prescriptions Prescriptions: New hydrocodone-acetaminophen 5-325 mg tablet 1 tab PO Q6H PRN (Reason: pain) Qty: 8 0RF ibuprofen 800 mg tablet 800 mg PO Q8HP PRN (Reason: moderate pain ) Qty: 15 0RF No Action spironolactone 50 mg tablet 50 mg PO DAILY Qty: 90 0RF gyqayourhj-bgdtrieqcauqk-hmrt [Fioricet] 50-300-40 mg capsule 1 cap PO Q4H PRN (Reason: Headache) Qty: 10 0RF omeprazole 40 mg capsule,delayed release(DR/EC) 40 mg PO DAILY lisinopril 5 mg tablet 5 mg PO DAILY buspirone 5 mg tablet 5 mg PO DAILY amlodipine 10 mg tablet 10 mg PO DAILY Label Comments: TAKE ONE TABLET BY MOUTH EVERY DAY Referrals Follow up/Referrals: Phong Aldrich APRN [Primary Care Provider] - See instructions Activity Restrictions/Add. Instructions Additional Instructions/Restrictions: Ibuprofen as needed for pain. [place] as needed for more severe pain. Follow-up with primary care provider, call to make follow-up appointment. Additional instructions for ABDOMINAL PAIN: See your physician as soon as possible for further evaluation. Return immediately if worsening abdominal pain, vomiting, shortness of breath, fever, vomiting of blood or abdominal distention. Additional instructions for CONTROLLED SUBSTANCES: You have been prescribed a medication that is a controlled substance. Controlled substances include pain medications known as opiates and sedative nerve medications known as benzodiazepines. Tramadol, fioricet, and gabapentin are also controlled substances. Some common opiates include: Codeine (such as Tylenol #3) Hydrocodone (Vicodin, Lortab, Lorcet, [place]) Oxycodone (Percocet, Percodan, Oxycodone, Oxy IR) Some common benzodiazepines include: Diazepam (Valium) Lorazepam (Ativan) Alprazolam (Xanax) Clonazepam (Klonopin) Oxazepam (Serax) All of these controlled substances are highly addictive and frequently abused. Misuse can and frequently does lead to addiction as well as overdose and . Medication should be stored in a locked cabinet or other secure storage unit. Do not store the medication in a motor vehicle. Short term supplies, 3 days or less, are prescribed because of the highly addictive nature of the medication. Any of the controlled substance medication NOT taken should be disposed of properly and NOT SAVED. The recommended method of disposing of unused medications is: Place the medicines in a sealable plastic bag. If the medicine is a solid, crush it or add water to dissolve it. Add something undesirable (cat litter, coffee grounds, etc.) Dispose of sealed bag in household trash Do not flush or pour unused medicines down a sink or drain. Controlled substances should not be shared, given away or sold. Because of the addictive nature and frequent abuse, these medications are sometimes stolen. These medications should be kept in a safe place where they cannot be stolen. Do not keep them in your car or purse. Lost or stolen prescriptions for controlled substances WILL NOT BE REFILLED in this emergency department, regardless of whether a police report was filed. Clinical Impressions Clinical Impression: Ovarian cyst, Lower abdominal pain Instructions Patient Instructions: DI for Acute Abdominal Pain Discharge ED Provider: Travon Whitley Adult [facility] General Chief complaint: Abdominal Pain Stated complaint: Severe lower abdominal pain Time Seen by Provider: 12/05/21 08:56 Mode of Arrival: Wheelchair Source of Information: Patient Limitations: No Limitations Description of Symptoms (Recalled from ER Triage Doc. by RN): pt to ed c/o lower abd/groin pain. pt reports a prior hx of ovarian cysts rupturing. 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 pt denies any vaginal bleeding. History of Present Il
[2021-12-05 09:06] LABS: Basophils # 0.1 K/mm3 (0-0.2); Basophils % 1.8 % (0.1-2.0); Chloride 105 mmol/L (98-107); Eosinophils # 0.1 K/mm3 (0.0-0.4); Eosinophils % 1.8 % (0.1-12.0); Hematocrit 41.7 % (37.0-47.0); Hemoglobin 13.6 g/dL (12.2-16.2); Lymphocytes # 1.6 K/mm3 (0.7-4.5); Lymphocytes % 26.5 % (10-50); Mean Corpuscular HGB Conc 32.6 g/dL (31.8-35.4); Mean Corpuscular Hemoglobin 30.5 pg (27.0-31.2); Mean Corpuscular Volume 93.8 fl (81-99); Mean Platelet Volume 9.1 fl (7.4-10.4); Monocytes # 0.4 K/mm3 (0.1-1.0); Neutrophils # 3.7 K/mm3 (1.8-7.8); Neutrophils % 62.8 % (37.0-80.0); Platelet Count 280 K/mm3 (142-424); Red Blood Count 4.45 M/mm3 (4.20-5.40); Red Cell Distribution Width 13.5 % (11.5-17.5); Sodium 143 mmol/L (136-145); White Blood Count 5.9 K/mm3 (4.8-10.8)
[2021-12-05 09:07] LABS: Potassium 4.3 mmoL/L (3.5-5.1)
[2021-12-05 09:09] LABS: Alanine Aminotransferase 29 U/L (12-78); Alkaline Phosphatase 53 U/L (38-126); Anion Gap 14.3 mEq/L (5-15); Aspartate Amino Transferase 43 U/L (14-36); Blood Urea Nitrogen 13 mg/dl (7-17); Carbon Dioxide 28 mmol/L (22.0-30.0); Creatinine Clearance Estimated 244 mL/min (50-200); Estimated Glomerular Filt Rate 114 ml/min (>60); GFR (African American) 138 ML/MIN (>60)
[2021-12-05 09:10] LABS: Albumin Level 4.4 g/dl (3.5-5.0); Albumin/Globulin Ratio 1.5 (1.1-1.8); Bilirubin,Total < 0.1 mg/dl (0.2-1.3); Calcium 8.6 mg/dl (8.4-10.2); Globulin 2.9 g/dL (1.3-3.2); Glucose 142 mg/dl (74-100); Total Protein,Serum 7.3 g/dl (6.3-8.2)
--- NOTE | 2021-12-05 09:12 | PC.NURSE ---
pt reports unable to urinate at this time. States no needs at this time.
--- NOTE | 2021-12-05 09:27 | PC.NURSE ---
pt ambulating to the restroom to attempt to give ua
--- NOTE | 2021-12-05 09:32 | PC.NURSE ---
urine sent to the lab
[2021-12-05 09:34] LABS: Microscopic, Urine URINE MICROSCOPIC (MICROSCOPIC)
[2021-12-05 09:36] LABS: Appearance,Urine CLEAR (Clear); Bilirubin,Urine Negative (Negative); Blood, Urine Negative (Negative); Color,Urine YELLOW (Yellow); Glucose,Urine (UA) Negative (Negative); Ketones,Urine Negative (Negative); Leukocyte Esterase,Urine Negative (Negative); Nitrate,Urine Negative (Negative); PH,Urine 7.5 (5.0-8.5); Protein,Urine TRACE (Negative); Specific Gravity, Urine 1.015 (1.005-1.030); Urobilinogen,Urine 0.2 EU/dl (0.2)
[2021-12-05 09:39] LABS: HCG Qualitative, Serum Negative (Negative)
--- NOTE | 2021-12-05 09:51 | PC.NURSE ---
pt medicated per APR. lights dimmed for comfort. no needs at this time. pt states she does not want to wear her bp cuff at this time.
--- NOTE | 2021-12-05 09:56 | CT_ITS ---
FINAL REPORT CLINICAL HISTORY: lower abdominal pain FINDINGS: CT ABDOMEN & PELVIS W/CONTRAST Technique: The patient was injected with intravenous contrast. Axial images through the abdomen and pelvis were performed. This study was performed with techniques to keep radiation doses as low as reasonably achievable (ALARA). Individualized dose reduction techniques using automated exposure control or adjustment of mA and/or kV according to the patient's size were employed. Abdomen: The lung bases are clear. There is mild fatty infiltration of the liver. The gallbladder is present. The spleen is unremarkable. The adrenals are normal. The pancreas is unremarkable. The right kidney enhances appropriately. There is a less than 1 cm mass in the anterior left kidney which may represent a small cyst or angiomyolipoma. The aorta is normal in caliber. There is no free fluid or adenopathy. Pelvis: The appendix is normal. There is a descending and sigmoid diverticulosis without evidence of diverticulitis. There is a 26 mm right ovarian cyst which is likely a corpus luteum cyst. The urinary bladder is unremarkable. There is a small amount of pelvic free fluid, physiologic or reactive. IMPRESSION: Less than 1 cm mass in the anterior left kidney, may represent a small cyst or angiomyolipoma. 26 mm right ovarian cyst, likely a corpus luteum cyst. Reviewed, Interpreted and Dictated by Yariel Du III, MD Transcribed by Nay Elizondo Authenticated and [facility]
[2021-12-05 10:12] LABS: RBC,Urine Occasional #/hpf (0-3)
[2021-12-05 10:13] LABS: Bacteria,Urine Trace /lpf
--- NOTE | 2021-12-05 10:17 | PC.NURSE ---
pt to ct at this time with radiology staff
--- NOTE | 2021-12-05 10:29 | PC.NURSE ---
pt return from CT
--- NOTE | 2021-12-05 10:54 | PC.NURSE ---
checked on pt at this time. no needs voiced.
--- NOTE | 2021-12-05 11:25 | PC.NURSE ---
calling CT for update on report
--- NOTE | 2021-12-05 11:26 | PC.NURSE ---
CT to fax preliminary report
--- NOTE | 2021-12-05 11:27 | PC.NURSE ---
preliminary report given to
--- NOTE | 2021-12-05 11:31 | PC.NURSE ---
at the bedside speaking to pt regarding CT
--- NOTE | 2021-12-05 11:54 | PC.NURSE ---
pt states she called for a ride.
== END 2021-12-05 12:48 | disposition home or self-care (01) ==
PROVIDERS: Emergency Provider Emergency Medicine; PCP Nurse Practitioner Family
DX: N83.201 Unspecified ovarian cyst, right side (principal); Z79.899 Other long term (current) drug therapy; Z88.8 Allergy status to other drugs, medicaments and biological substances
CPT/HCPCS: 74177; 80053; 81001; 84703; 85025; 96365; 96375; 99284; J2405; Q9967

== ENCOUNTER → 2022-03-12 11:07 | Outpatient (CLI) | payer BC, SELFPAY ==
[2022-03-12 19:37] LABS: Amphetamine/Metha Screen,Urine Negative ng/ml (<1000); Barbiturates Screen,Urine Negative ng/ml (<200)
[2022-03-12 19:38] LABS: Benzodiazepines Screen,Urine Negative ng/ml (<200)
[2022-03-12 19:39] LABS: Cannabinoid Screen,Urine Negative ng/ml (<50); Cocaine Screen,Urine Negative ng/ml (<300)
[2022-03-12 19:40] LABS: Methadone Screen,Urine Negative ng/ml (<300)
[2022-03-12 19:42] LABS: Opiate Screen,Urine Negative ng/ml (<300); Phencyclidine Screen,Urine Negative ng/ml (<25)
== END ==
PROVIDERS: PCP Nurse Practitioner Family; Visit Provider Nurse Practitioner Family
DX: Z79.899 Other long term (current) drug therapy (principal); N39.0 Urinary tract infection, site not specified
CPT/HCPCS: 80305; 87086

== ENCOUNTER 2022-05-10 17:16 | Emergency (ER) | payer BC, SELFPAY ==
[2022-05-10 17:20] VITALS: BP 134/92; PULSE 83; RESP 18; TEMP 36.7; O2SAT 98; BMI 32.6
[2022-05-10 17:40] VITALS: BP 134/92; PULSE 83; RESP 18; TEMP 36.7; O2SAT 98; BMI 32.5
--- NOTE | 2022-05-10 18:31 | EXP.UTC ---
Discharge Plan Disposition Patient Disposition: Home, Self-Care Condition: Good Prescriptions Prescriptions: New amoxicillin 875 mg tablet 875 mg PO BID 10 Days Qty: 20 0RF benzonatate 100 mg capsule 100 mg PO TID PRN (Reason: cough) Qty: 30 0RF No Action spironolactone 50 mg tablet 50 mg PO DAILY Qty: 90 0RF metronidazole 500 mg tablet 500 mg PO BID Qty: 14 0RF buspirone 15 mg tablet 15 mg PO BID Qty: 60 2RF bupropion HCl 150 mg tablet extended release 24 hr 150 mg PO DAILY Qty: 30 2RF meloxicam 7.5 mg tablet See Rx Instructions .ROUTE .COMPLEX Qty: 30 0RF Dose Instruction: TAKE 1 TABLET BY MOUTH ONCE DAILY - USE ONLY NEEDED Rx Instructions: TAKE 1 TABLET BY MOUTH ONCE DAILY - USE ONLY NEEDED dextroamphetamine-amphetamine [Adderall XR] 10 mg capsule,extended release 24hr 10 mg PO DAILY Qty: 30 0RF nimqkowlnx-vgqsznrzsjmdo-ylzm [Fioricet] 50-300-40 mg capsule 1 cap PO Q4H PRN (Reason: Headache) Qty: 10 0RF omeprazole 40 mg capsule,delayed release(DR/EC) 40 mg PO DAILY amlodipine 10 mg tablet 10 mg PO DAILY Label Comments: TAKE ONE TABLET BY MOUTH EVERY DAY hydrocodone-acetaminophen 5-325 mg tablet 1 tab PO Q6H PRN (Reason: pain) Qty: 8 0RF Referrals Follow up/Referrals: Phong Aldrich APRN [Primary Care Provider] - See instructions Clinical Impressions Clinical Impression: Upper respiratory tract infection Instructions Patient Instructions: DI for Viral Upper Respiratory Infection -- Adult Discharge ED Provider: Aleida Pineda [facility] General Stated complaint: [id number],congestion Mode of Arrival: Ambulatory Source of Information: Patient Limitations: No Limitations Time Seen by Provider: 05/10/22 18:30 Description of Symptoms (Recalled from Triage Doc. by RN): PATIENT C/O COUGH AND SOA FOR APPROX 2.5 WEEKS HEENT Symptoms (Recalled from RN notes): No Resp Symptoms (Recalled from RN notes): Yes Skin Symptoms (Recalled from RN notes): No MS Symptoms (Recalled from RN notes): No Functional Status (Recalled from RN notes): WNL History of Present Illness Provider Complaint: Pt states that she has been miserable for the last 2.5 weeks. She states that she has taken OTC Claritan-D, cold medications, and sore throat medication. She states that she has had a change in the color of her drainage and has had some bloody drainage as well. Related Data Home Medications Medication Instructions Recorded Confirmed amlodipine 10 mg tablet 10 mg PO DAILY per md 12/05/21 05/08/22 omeprazole 40 mg capsule,delayed 40 mg PO DAILY GERD 12/05/21 05/08/22 release Previous Rx's Medication Instructions Recorded spironolactone 50 mg tablet 50 mg PO DAILY BP #90 tabs 07/24/21 eswawxefni-skzfvmwltmual-fakirqwf 1 cap PO Q4H PRN Headache #10 caps 11/21/21 50 mg-300 mg-40 mg capsule (Fioricet) hydrocodone 5 mg-acetaminophen 325 1 tab PO Q6H PRN pain #8 tabs 12/05/21 mg tablet metronidazole 500 mg tablet 500 mg PO BID #14 tabs 03/12/22 bupropion HCl 150 mg 24 hr tablet, 150 mg PO DAILY #30 tabs 04/11/22 extended release buspirone 15 mg tablet 15 mg PO BID #60 tabs 04/11/22 meloxicam 7.5 mg tablet See Rx Instructions .Route 05/06/22 .COMPLEX #30 tabs dextroamphetamine-amphetamine ER 10 mg PO DAILY #30 caps 05/08/22 10 mg 24hr capsule,extend release (Adderall XR) amoxicillin 875 mg tablet 875 mg PO BID 10 days #20 tabs 05/10/22 benzonatate 100 mg capsule 100 mg PO TID PRN cough #30 caps 05/10/22 Allergies Allergy/AdvReac Type Severity Reaction Status Date / Time metaxalone Allergy Verified 05/08/22 08:38 Worker's Comp Is this a Worker's Comp case?: No [facility] Disclaimer: The information contained in this section may have been updated after the patient was seen, as this information can be updated by other users. Medical History (Updated 05/10/22 @ 18:46 by Aleida Pineda APRN) Acute CO
[2022-05-10 18:44] VITALS: BP 134/92; PULSE 83; RESP 18; TEMP 36.7; O2SAT 98
== END 2022-05-10 18:48 | disposition home or self-care (01) ==
PROVIDERS: Emergency Provider Nurse Practitioner Family; PCP Nurse Practitioner Family
DX: J06.9 Acute upper respiratory infection, unspecified (principal); M54.50 Low back pain, unspecified
CPT/HCPCS: 99212; 99214; G0463

== ENCOUNTER 2022-08-26 19:08 | Emergency (ER) | payer BC, SELFPAY ==
[2022-08-26 19:10] VITALS: BP 160/111; PULSE 67; RESP 16; TEMP 37; O2SAT 98; BMI 32.6
--- NOTE | 2022-08-26 19:21 | HMH.EDGENADL ---
Discharge Plan Disposition Patient Disposition: Home, Self-Care Condition: Fair Prescriptions Prescriptions: No Action naltrexone 50 mg tablet 50 mg PO polyethylene glycol 3350 [Miralax] 17 gram/dose powder 17 g PO DAILY Qty: 238 2RF meloxicam 7.5 mg tablet See Rx Instructions .ROUTE .COMPLEX Qty: 30 0RF Dose Instruction: TAKE 1 TABLET BY MOUTH ONCE DAILY - USE ONLY NEEDED Rx Instructions: TAKE 1 TABLET BY MOUTH ONCE DAILY - USE ONLY NEEDED buspirone 15 mg tablet See Rx Instructions .ROUTE .COMPLEX Qty: 60 1RF Dose Instruction: TAKE 1 TABLET BY MOUTH TWICE DAILY Rx Instructions: TAKE 1 TABLET BY MOUTH TWICE DAILY bupropion HCl 150 mg tablet extended release 24 hr See Rx Instructions .ROUTE .COMPLEX Qty: 30 1RF Dose Instruction: TAKE 1 TABLET BY MOUTH ONCE DAILY Rx Instructions: TAKE 1 TABLET BY MOUTH ONCE DAILY mopavepaxs-pxokffcusuido-iquz [Fioricet] 50-300-40 mg capsule 1 cap PO Q4H PRN (Reason: Headache) Qty: 10 0RF omeprazole 40 mg capsule,delayed release(DR/EC) 40 mg PO DAILY Referrals Follow up/Referrals: Phong Aldrich APRN [Primary Care Provider] - See instructions Clinical Impressions Clinical Impression: Laceration of scalp without foreign body, Headache Instructions Patient Instructions: Closed Head Injury Print Language Print Language: Turkish Discharge ED Provider: Jas Reyna Adult HPI General Chief complaint: Head Injury Stated complaint: [id number] hit head Time Seen by Provider: 08/26/22 19:21 Mode of Arrival: Wheelchair Source of Information: Patient Limitations: No Limitations Description of Symptoms (Recalled from ER Triage Doc. by RN): pt to the ED with head laceration to top of head when she was walking into her chicken coop. pt reports she hit is on a cross beam with vangie nails present. pt denies LOC or blood thinners History of Present Illness HPI narrative: The patient presents to the emergency department after standing up and chicken coop and striking her scalp. The patient developed a laceration on her scalp. Patient reports a moderate diffuse headache without vomiting or confusion Onset (ago): hour(s) (1) Location: head Radiation: neck Severity: moderate Quality: burning Relieving factors: none Exacerbating factors: none Related Data Home Medications Medication Instructions Recorded Confirmed omeprazole 40 mg capsule,delayed 40 mg PO DAILY GERD 12/05/21 08/07/22 release naltrexone 50 mg tablet 50 mg PO 08/07/22 08/07/22 Previous Rx's Medication Instructions Recorded iefizevurd-jjctvpasjzsns-lfjappty 1 cap PO Q4H PRN Headache #10 caps 11/21/21 50 mg-300 mg-40 mg capsule (Fioricet) meloxicam 7.5 mg tablet See Rx Instructions .Route 07/02/22 .COMPLEX #30 tabs polyethylene glycol 3350 17 17 g PO DAILY #238 grams 07/11/22 gram/dose oral powder (Miralax) bupropion HCl 150 mg 24 hr tablet, See Rx Instructions .Route 07/22/22 extended release .COMPLEX #30 tabs buspirone 15 mg tablet See Rx Instructions .Route 07/22/22 .COMPLEX #60 tabs Allergies Allergy/AdvReac Type Severity Reaction Status Date / Time metaxalone Allergy Verified 08/07/22 14:32 [facility] Disclaimer: The information contained in this section may have been updated after the patient was seen, as this information can be updated by other users. Medical History (Updated 08/26/22 @ 20:10 by Jas Reyna MD) Acute COVID-19 Bacterial vaginitis Low back pain Obesity, morbid (more than 100 lbs over ideal weight or BMI > 40) Pain in head Vaginal foreign body Surgical History (Updated 08/07/22 @ 15:18 by Halle Bender APRN) History of breast lump/mass excision History of gastric surgery Social History Smoking Status: Never smoker alcohol intake: never substance use type: denies use current occupational status: employed T
[2022-08-26 20:22] VITALS: BP 131/90; PULSE 84; RESP 16; TEMP 36.6; O2SAT 98
== END 2022-08-26 20:26 | disposition home or self-care (01) ==
PROVIDERS: Emergency Provider Emergency Medicine; PCP Nurse Practitioner Family
DX: S01.01XA Laceration without foreign body of scalp, initial encounter (principal); R51.9 Headache, unspecified; W22.09XA Striking against other stationary object, initial encounter; E66.01 Morbid (severe) obesity due to excess calories; Z23 Encounter for immunization
CPT/HCPCS: 12002; 90471; 90715; 96372; 99283; 99284

== ENCOUNTER → 2022-08-27 13:59 | Outpatient (CLI) | payer BC, SELFPAY ==
--- NOTE | 2022-08-27 14:04 | CT_ITS ---
FINAL REPORT CLINICAL HISTORY: head injury top of head COMPARISON: 11/21/2021 FINDINGS: Axial images of the head were obtained without contrast. Coronal reformatted images were also obtained.This study was performed with techniques to keep radiation doses as low as reasonably achievable (ALARA). Individualized dose reduction techniques using automated exposure control or adjustment of mA and/or kV according to the patient's size were employed. There is no evidence of intracranial hemorrhage or mass. The ventricular size is within normal limits. There is no evidence of shift of the midline structures. No abnormal extra axial fluid collection is identified. No skull abnormality is seen on the bone window images. IMPRESSION: No acute intracranial abnormality. Reviewed, Interpreted and Dictated by Yariel Du III, MD Transcribed by Nella Fernandez Authenticated and [facility]
--- NOTE | 2022-08-27 14:04 | CT_ITS ---
FINAL REPORT CLINICAL HISTORY: head injury top of head, neck pain FINDINGS: Axial CT images of the cervical spine were obtained without contrast. Sagittal and coronal reformatted images were also obtained. This study was performed with techniques to keep radiation doses as low as reasonably achievable (ALARA). Individualized dose reduction techniques using automated exposure control or adjustment of mA and/or kV according to the patient''s size were employed. There is no evidence of fracture or dislocation. The bony alignment is normal. The disc spaces are preserved. There is no evidence of canal stenosis. No paraspinous soft tissue abnormality is seen. Limited images of the upper thorax are unremarkable. IMPRESSION: No fracture or acute bony abnormality identified. Reviewed, Interpreted and Dictated by Yariel Du III, MD Transcribed by Nella Fernandez Authenticated and [facility]
== END ==
PROVIDERS: PCP Nurse Practitioner Family; Visit Provider Emergency Medicine
DX: S01.01XA Laceration without foreign body of scalp, initial encounter (principal); S06.0XAA Concussion with loss of consciousness status unknown, initial encounter; R51.9 Headache, unspecified; R42 Dizziness and giddiness; Z71.89 Other specified counseling
CPT/HCPCS: 70450; 72125

== ENCOUNTER → 2022-09-04 12:19 | Outpatient (CLI) | payer BC, SELFPAY ==
[2022-09-04 13:08] LABS: Basophils % 0.5 % (0.1-2.0); Eosinophils # 0.1 K/mm3 (0.0-0.4); Eosinophils % 3.1 % (0.1-12.0); Hematocrit 41.4 % (37.0-47.0); Hemoglobin 13.3 g/dL (12.2-16.2); Lymphocytes # 1.6 K/mm3 (0.7-4.5); Lymphocytes % 37.6 % (10-50); Mean Corpuscular HGB Conc 32.1 g/dL (31.8-35.4); Mean Corpuscular Hemoglobin 30.8 pg (27.0-31.2); Mean Corpuscular Volume 95.9 fl (81-99); Mean Platelet Volume 9.1 fl (7.4-10.4); Monocytes # 0.4 K/mm3 (0.1-1.0); Monocytes % 9.1 % (1.7-9.3); Neutrophils # 2.1 K/mm3 (1.8-7.8); Neutrophils % 49.7 % (37.0-80.0); Platelet Count 251 K/mm3 (142-424); Red Blood Count 4.31 M/mm3 (4.20-5.40); White Blood Count 4.2 K/mm3 (4.8-10.8)
[2022-09-04 13:33] LABS: Alanine Aminotransferase 22 U/L (12-78); Albumin Level 4.2 g/dl (3.5-5.0); Albumin/Globulin Ratio 1.4 (1.1-1.8); Alkaline Phosphatase 39 U/L (38-126); Anion Gap 12.3 mEq/L (5-15); Aspartate Amino Transferase 30 U/L (14-36); Bilirubin,Total 0.3 mg/dl (0.2-1.3); Blood Urea Nitrogen 11 mg/dl (7-17); Calcium 9.2 mg/dl (8.4-10.2); Carbon Dioxide 28 mmol/L (22.0-30.0); Chloride 104 mmol/L (98-107); Estimated Glomerular Filt Rate 113 ml/min (>60); GFR (African American) 137 ML/MIN (>60); Globulin 2.9 g/dL (1.3-3.2); Glucose 97 mg/dl (74-100); Potassium 4.3 mmoL/L (3.5-5.1); Sodium 140 mmol/L (136-145); Total Protein,Serum 7.1 g/dl (6.3-8.2)
[2022-09-06 01:13] LABS: Calprotectin, Fecal 109 ug/g (0-120)
== END ==
PROVIDERS: PCP Nurse Practitioner Family; Visit Provider Nurse Practitioner
DX: R10.30 Lower abdominal pain, unspecified (principal); R10.9 Unspecified abdominal pain; K92.1 Melena; R19.7 Diarrhea, unspecified; Z90.3 Acquired absence of stomach [part of]
CPT/HCPCS: 36415; 80053; 83993; 85025; 87205

== ENCOUNTER 2022-09-08 14:40 | Emergency (ER) | payer BC, SELFPAY ==
[2022-09-08 14:41] VITALS: BP 131/93; PULSE 88; RESP 18; TEMP 36.6; O2SAT 98; BMI 31.9
--- NOTE | 2022-09-08 14:56 | CT_ITS ---
FINAL REPORT CLINICAL HISTORY: abdominal pain FINDINGS: CT OF THE ABDOMEN AND PELVIS WITH CONTRAST Axial CT images of the abdomen and pelvis were obtained after the administration of IV contrast. Coronal and sagittal reformatted images were also obtained and reviewed. This study was performed with techniques to keep radiation doses as low as reasonably achievable (ALARA). Individualized dose reduction techniques using automated exposure control or adjustment of mA and/or kV according to the patient's size were employed. Abdomen: The lung bases are clear. The heart is normal in size. The liver has an unremarkable appearance, without evidence of mass or biliary ductal dilatation. The gallbladder is unremarkable. The spleen is unremarkable. No adrenal mass is present. The pancreas has an unremarkable appearance. A less than 1 cm mass is seen in the anterior left kidney consistent with a small cyst or angiomyolipoma. There is no evidence of hydronephrosis. Postoperative changes are seen from gastric sleeve procedure. The aorta is normal in caliber. There is no free fluid or adenopathy. No abnormal fluid collection is identified Pelvis: The appendix is unremarkable. The urinary bladder is unremarkable. No inflammatory process is seen. There are small bilateral ovarian cysts. Multiple diverticula are seen in the descending and sigmoid colon there is no evidence of bowel obstruction. IMPRESSION: No evidence of acute intra-abdominal process. Authenticated and [facility]
--- NOTE | 2022-09-08 15:09 | HMH.EDGENADL ---
Discharge Plan Disposition Patient Disposition: Home, Self-Care Prescriptions Prescriptions: New azithromycin 500 mg tablet 500 mg PO DAILY Qty: 3 0RF ondansetron 4 mg tablet,disintegrating 4 mg PO Q8H PRN (Reason: Nausea) Qty: 15 0RF dicyclomine 20 mg tablet 20 mg PO BID PRN (Reason: abdominal pain) Qty: 10 0RF No Action naltrexone 50 mg tablet 50 mg PO polyethylene glycol 3350 [Miralax] 17 gram/dose powder 17 g PO DAILY Qty: 238 2RF cephalexin 500 mg capsule 500 mg PO TID Qty: 21 0RF buspirone 15 mg tablet See Rx Instructions .ROUTE .COMPLEX Qty: 60 1RF Dose Instruction: TAKE 1 TABLET BY MOUTH TWICE DAILY Rx Instructions: TAKE 1 TABLET BY MOUTH TWICE DAILY bupropion HCl 150 mg tablet extended release 24 hr See Rx Instructions .ROUTE .COMPLEX Qty: 30 1RF Dose Instruction: TAKE 1 TABLET BY MOUTH ONCE DAILY Rx Instructions: TAKE 1 TABLET BY MOUTH ONCE DAILY ondansetron 4 mg tablet,disintegrating 4 mg PO Q8H PRN (Reason: nausea and vomiting) Qty: 30 0RF meloxicam 7.5 mg tablet See Rx Instructions .ROUTE .COMPLEX Qty: 30 0RF Dose Instruction: TAKE 1 TABLET BY MOUTH ONCE DAILY - USE ONLY NEEDED TAKE WITH FOOD Rx Instructions: TAKE 1 TABLET BY MOUTH ONCE DAILY - USE ONLY NEEDED TAKE WITH FOOD ariwtmspja-ffdtcltweuzrd-wuwz [Fioricet] 50-300-40 mg capsule 1 cap PO Q4H PRN (Reason: Headache) Qty: 10 0RF omeprazole 40 mg capsule,delayed release(DR/EC) 40 mg PO DAILY Referrals Follow up/Referrals: Phong Aldrich APRN [Primary Care Provider] - See instructions Clinical Impressions Clinical Impression: Diarrhea Instructions Patient Instructions: DI for Diarrhea and Traveler's Diarrhea -- Adult, DI for Diarrhea and Traveler's Diarrhea -- Child, DI for Nausea -- Adult, DI for Nausea -- Child Discharge ED Provider: Weston Laurent General Adult HPI General Chief complaint: Nausea/Vomiting/Diarrhea Stated complaint: bloody stool, dizzy Time Seen by Provider: 09/08/22 14:45 Mode of Arrival: Ambulatory Source of Information: Patient Limitations: No Limitations Description of Symptoms (Recalled from ER Triage Doc. by RN): Pt reports blood noted in stools for 2 days, reprots has had some episodes of diarrhea. Pt reports after eating has to have a BM soon afterwards. History of Present Illness HPI narrative: 37-year-old female history of gastric sleeve presents with lower abdominal bleeding and lower abdominal pain. She has had bright red blood per rectum for the last few days and then she felt like she ate some funny tuna yesterday and started having some nausea and worsening diarrhea. The pain is lower abdomen crampy dull nonradiating. No dysuria or hematuria no vaginal bleeding or discharge. No vomiting blood. No blood thinner Related Data Home Medications Medication Instructions Recorded Confirmed omeprazole 40 mg capsule,delayed 40 mg PO DAILY GERD 12/05/21 09/05/22 release naltrexone 50 mg tablet 50 mg PO 08/07/22 09/05/22 Previous Rx's Medication Instructions Recorded ybywvnkajc-nnwpurqejcdae-kvwlpsuy 1 cap PO Q4H PRN Headache #10 caps 11/21/21 50 mg-300 mg-40 mg capsule (Fioricet) polyethylene glycol 3350 17 17 g PO DAILY #238 grams 07/11/22 gram/dose oral powder (Miralax) bupropion HCl 150 mg 24 hr tablet, See Rx Instructions .Route 07/22/22 extended release .COMPLEX #30 tabs buspirone 15 mg tablet See Rx Instructions .Route 07/22/22 .COMPLEX #60 tabs cephalexin 500 mg capsule 500 mg PO TID #21 caps 08/27/22 ondansetron 4 mg disintegrating 4 mg PO Q8H PRN nausea and 08/28/22 tablet vomiting #30 tabs meloxicam 7.5 mg tablet See Rx Instructions .Route 09/03/22 .COMPLEX #30 tabs azithromycin 500 mg tablet 500 mg PO DAILY #3 tabs 09/08/22 dicyclomine 20 mg tablet 20 mg PO BID PRN abdominal pain 09/08/22 #10 tabs ondansetron 4 mg disintegrating 4 mg PO Q8H PRN Nausea #15 ta
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
[2022-09-08 15:21] LABS: Microscopic, Urine URINE MICROSCOPIC (MICROSCOPIC)
[2022-09-08 15:24] LABS: Appearance,Urine CLEAR (Clear); Bilirubin,Urine Negative (Negative); Blood, Urine Negative (Negative); Color,Urine YELLOW (Yellow); Glucose,Urine (UA) Negative (Negative); Ketones,Urine Negative (Negative); Leukocyte Esterase,Urine Negative (Negative); Nitrate,Urine Negative (Negative); Protein,Urine Negative (Negative); Specific Gravity, Urine <= 1.005 (1.005-1.030); Urobilinogen,Urine 0.2 EU/dl (0.2)
[2022-09-08 15:29] LABS: Chloride 107 mmol/L (98-107); Sodium 144 mmol/L (136-145)
[2022-09-08 15:30] VITALS: BP 153/101; PULSE 84; RESP 20; O2SAT 97
[2022-09-08 15:30] LABS: Basophils # 0.1 K/mm3 (0-0.2); Basophils % 0.8 % (0.1-2.0); Eosinophils # 0.2 K/mm3 (0.0-0.4); Eosinophils % 2.5 % (0.1-12.0); Hematocrit 40.7 % (37.0-47.0); Hemoglobin 13.5 g/dL (12.2-16.2); Lymphocytes # 2.2 K/mm3 (0.7-4.5); Lymphocytes % 33.5 % (10-50); Mean Corpuscular HGB Conc 33.2 g/dL (31.8-35.4); Mean Corpuscular Hemoglobin 31.2 pg (27.0-31.2); Mean Platelet Volume 8.6 fl (7.4-10.4); Monocytes # 0.5 K/mm3 (0.1-1.0); Monocytes % 7.7 % (1.7-9.3); Neutrophils # 3.7 K/mm3 (1.8-7.8); Neutrophils % 55.6 % (37.0-80.0); Platelet Count 281 K/mm3 (142-424); Potassium 3.5 mmoL/L (3.5-5.1); Red Blood Count 4.33 M/mm3 (4.20-5.40); Red Cell Distribution Width 12.6 % (11.5-17.5); White Blood Count 6.6 K/mm3 (4.8-10.8)
[2022-09-08 15:32] LABS: Alanine Aminotransferase 25 U/L (12-78); Albumin Level 4.5 g/dl (3.5-5.0); Albumin/Globulin Ratio 1.3 (1.1-1.8); Alkaline Phosphatase 46 U/L (38-126); Anion Gap 14.5 mEq/L (5-15); Aspartate Amino Transferase 48 U/L (14-36); Bilirubin,Total 0.3 mg/dl (0.2-1.3); Blood Urea Nitrogen 8 mg/dl (7-17); Calcium 9.5 mg/dl (8.4-10.2); Carbon Dioxide 26 mmol/L (22.0-30.0); Creatinine Clearance Estimated 234 mL/min (50-200); Estimated Glomerular Filt Rate 140 ml/min (>60); GFR (African American) 169 ML/MIN (>60); Globulin 3.6 g/dL (1.3-3.2); Glucose 90 mg/dl (74-100); Lipase 151 U/L (23-300); Total Protein,Serum 8.1 g/dl (6.3-8.2)
[2022-09-08 15:53] LABS: HCG Qualitative, Serum Negative (Negative)
[2022-09-08 15:54] VITALS: BP 148/102; PULSE 92; RESP 18; O2SAT 99
--- NOTE | 2022-09-08 15:55 | PC.NURSE ---
PT TO CT
[2022-09-08 16:30] VITALS: BP 143/90; PULSE 88; O2SAT 95
--- NOTE | 2022-09-08 16:51 | PC.NURSE ---
rounded on pt, pt sitting up in bed, states no needs at this time. Call mckinney in reach
[2022-09-08 17:01] VITALS: BP 153/89; PULSE 94; RESP 18; O2SAT 98
[2022-09-08 17:53] LABS: Bacteria,Urine Trace /lpf; Squamous Epithelial Cell,Urine Occasional #/hpf (0-5); WBC,Urine Occasional #/hpf (0-3)
[2022-09-08 18:13] VITALS: BP 153/89; PULSE 94; RESP 18; TEMP 36.6; O2SAT 98
== END 2022-09-08 18:15 | disposition home or self-care (01) ==
PROVIDERS: Emergency Provider Emergency Medicine; PCP Nurse Practitioner Family
DX: R10.30 Lower abdominal pain, unspecified (principal); K92.1 Melena; R42 Dizziness and giddiness; R19.7 Diarrhea, unspecified; E66.01 Morbid (severe) obesity due to excess calories
CPT/HCPCS: 74177; 80053; 81001; 83690; 84703; 85025; 96361; 96374; 96375; 99285; J2405; Q9967

== ENCOUNTER 2022-10-08 08:32 | Day surgery (SDC) | payer BC, SELFPAY ==
[2022-09-25 13:07] VITALS: BMI 31.7
--- NOTE | 2022-10-08 11:35 | SUR.PREOP ---
1130 - Procedure cx d/t pt eating w/in 30 min prior to her coming to pre-op. Dr. Reddy and anesthesia aware and stated for procedure to be rescheduled at later time. Shemar Livingston RN aware of this and will call pt will date/time for procedure. Pt made aware and verbalized understanding. Pt DC'd w/ sig other.
== END 2022-10-08 11:30 | disposition home or self-care (01) ==
LOC: OUTP 08:33
PROVIDERS: PCP Nurse Practitioner Family; Visit Provider Internal Medicine
PROC: 0DJ08ZZ Inspection of Upper Intestinal Tract, Via Natural or Artificial Opening Endoscopic (ICD-10-PCS; CPT 43235; principal; 2022-10-08 11:30)
DX: Z53.8 Procedure and treatment not carried out for other reasons (principal); R19.7 Diarrhea, unspecified; R10.30 Lower abdominal pain, unspecified; K92.1 Melena
CPT/HCPCS: 43235; 45378

== ENCOUNTER 2022-10-23 12:45 | Emergency (ER) | payer BC, SELFPAY ==
[2022-10-23] VITALS (7 sets, daily range): BP systolic 119–175; BP diastolic 75–111; PULSE 77–94; RESP 16; TEMP 36.7; O2SAT 97–100; BMI 31.1
--- NOTE | 2022-10-23 13:04 | PC.NURSE ---
report given armond weber
--- NOTE | 2022-10-23 13:16 | PC.NURSE ---
kelley score 21. aware
[2022-10-23 13:19] LABS: Basophils % 0.4 % (0.1-2.0); Eosinophils # 0.1 K/mm3 (0.0-0.4); Eosinophils % 1.9 % (0.1-12.0); Hematocrit 44.1 % (37.0-47.0); Hemoglobin 14.6 g/dL (12.2-16.2); Lymphocytes # 0.8 K/mm3 (0.7-4.5); Lymphocytes % 13.6 % (10-50); Mean Corpuscular HGB Conc 33.2 g/dL (31.8-35.4); Mean Corpuscular Hemoglobin 31.3 pg (27.0-31.2); Mean Corpuscular Volume 94.3 fl (81-99); Mean Platelet Volume 8.5 fl (7.4-10.4); Monocytes # 0.3 K/mm3 (0.1-1.0); Neutrophils # 4.4 K/mm3 (1.8-7.8); Platelet Count 273 K/mm3 (142-424); Red Blood Count 4.67 M/mm3 (4.20-5.40); Red Cell Distribution Width 13.1 % (11.5-17.5); White Blood Count 5.6 K/mm3 (4.8-10.8)
[2022-10-23 13:24] LABS: Chloride 99 mmol/L (98-107); INR 0.98 (0.9-1.1); Prothrombin Time 10.6 seconds (10.1-12.5)
[2022-10-23 13:25] LABS: Potassium 3.5 mmoL/L (3.5-5.1); Sodium 136 mmol/L (136-145)
--- NOTE | 2022-10-23 13:25 | PC.NURSE ---
Warm blanket provided, call mckinney within reach. Pt reports, whatever medicine they just gave me is making me feel funny. KAYLIE and Dr. Lee made aware. EKG ordered and completed.
[2022-10-23 13:27] LABS: Blood Urea Nitrogen 7 mg/dl (7-17); Creatinine Clearance Estimated 190 mL/min (50-200); Estimated Glomerular Filt Rate 113 ml/min (>60); GFR (African American) 137 ML/MIN (>60)
[2022-10-23 13:28] LABS: Alanine Aminotransferase 33 U/L (12-78); Albumin Level 4.3 g/dl (3.5-5.0); Albumin/Globulin Ratio 1.2 (1.1-1.8); Alkaline Phosphatase 65 U/L (38-126); Anion Gap 14.5 mEq/L (5-15); Aspartate Amino Transferase 50 U/L (14-36); Bilirubin,Total 0.6 mg/dl (0.2-1.3); Calcium 9.9 mg/dl (8.4-10.2); Carbon Dioxide 26 mmol/L (22.0-30.0); Globulin 3.5 g/dL (1.3-3.2); Glucose 123 mg/dl (74-100); Magnesium 1.7 mg/dl (1.6-2.3); Total Protein,Serum 7.8 g/dl (6.3-8.2)
--- NOTE | 2022-10-23 13:31 | ECG_ITS ---
APPROVED REPORT Exam: Resting ECG HR:75 bpm ECG Measurements Heart Rate 75 AXES NV 128 P 58 QRSd 91 QRS 69 QT 402 T 42 QTc 431 Conclusion SINUS RHYTHM NORMAL ECG UNCONFIRMED REPORT Electronically signed by : Guy Chao MD 10/23/2022 16:38:26
--- NOTE | 2022-10-23 13:47 | PC.NURSE ---
pt is resting in bed call light at bs
--- NOTE | 2022-10-23 13:50 | HMH.EDGENADL ---
Discharge Plan Disposition Patient Disposition: Home, Self-Care Condition: Good Prescriptions Prescriptions: New chlordiazepoxide HCl 25 mg capsule See Rx Instructions .ROUTE .COMPLEX Qty: 15 0RF Rx Instructions: 25 mg oral tablets, dispense fifteen 25mg tablets Day 1: 50mg q6h Day 2: 25mg q6h Day 3: 25mg q12h Day 4: 25mg at night No Action ondansetron 4 mg tablet,disintegrating 4 mg PO Q8H PRN (Reason: nausea and vomiting) Qty: 30 0RF cetirizine [Zyrtec] 10 mg tablet 10 mg PO DAILY Qty: 30 3RF montelukast [Singulair] 10 mg tablet 10 mg PO DAILY Qty: 30 2RF fluticasone propionate [Flonase Allergy Relief] 50 mcg/actuation spray,suspension 1 spray intranasal DAILY Qty: 16 2RF Rx Instructions: administer into each nostril peg 3350-electrolytes [GaviLyte-G] 236-22.74-6.74 -5.86 gram recon soln 240 ml PO Q10M Qty: 4000 0RF Rx Instructions: until fecal effluent is clear-- follow mailed instructions meloxicam 7.5 mg tablet See Rx Instructions .ROUTE .COMPLEX Qty: 30 0RF Dose Instruction: TAKE 1 TABLET BY MOUTH ONCE DAILY - USE ONLY NEEDED TAKE WITH FOOD Rx Instructions: TAKE 1 TABLET BY MOUTH ONCE DAILY - USE ONLY NEEDED TAKE WITH FOOD bupropion HCl 150 mg tablet extended release 24 hr See Rx Instructions .ROUTE .COMPLEX Qty: 30 2RF Dose Instruction: TAKE 1 TABLET BY MOUTH ONCE DAILY Rx Instructions: TAKE 1 TABLET BY MOUTH ONCE DAILY buspirone 15 mg tablet See Rx Instructions .ROUTE .COMPLEX Qty: 60 2RF Dose Instruction: TAKE 1 TABLET BY MOUTH TWICE DAILY Rx Instructions: TAKE 1 TABLET BY MOUTH TWICE DAILY fbdedpnkby-ivypffegqjzbc-nxbi [Fioricet] 50-300-40 mg capsule 1 cap PO Q4H PRN (Reason: Headache) Qty: 10 0RF omeprazole 40 mg capsule,delayed release(DR/EC) 40 mg PO DAILY Referrals Follow up/Referrals: Phong Aldrich APRN [Primary Care Provider] - See instructions Activity Restrictions/Add. Instructions Additional Instructions/Restrictions: You were evaluated in the emergency department today. Please orange picker your prescription and take the taper as prescribed. You were given a dose here upon arrival. Follow-up with your primary care provider over the next 48 hours for reassessment. Return to the emergency department for new or worsening symptoms, such as worsened anxiety, worsened agitation, or other concerns. Clinical Impressions Clinical Impression: Alcohol withdrawal Qualifiers: Complication of substance-induced condition: uncomplicated Qualified Code(s): F10.930 - Alcohol use, unspecified with withdrawal, uncomplicated Instructions Patient Instructions: DI for Drug or Alcohol Withdrawal Discharge ED Provider: Bell Lee General Adult HPI General Chief complaint: Headache Stated complaint: possible alcohol withdraw, possible UTI Time Seen by Provider: 10/23/22 12:55 Mode of Arrival: Ambulatory Source of Information: Patient Limitations: No Limitations Description of Symptoms (Recalled from ER Triage Doc. by RN): Pt reports concern for alcohol withdraw, reprots x4 days continuous etoh use, reports today is day 2 without any alcohol. Pt c/o migraine, vomiting/nausea. History of Present Illness HPI narrative: This patient is a 37-year-old female with a history of obesity and regular alcohol use presenting to the emergency department with concern that she is having alcohol withdrawals. She reports that she had had some issues with a friend last week, and over the weekend she binge drink for approximately 4 days. She states that her last drink was 3 days ago. She denies experiencing alcohol withdrawal in the past, and she denies any history of alcohol withdrawal seizures. She denies ever having to seek treatment for alcohol withdrawal or detox. She states that she was in AA, however she had a falling out with someone there and has not been seen there. Her symp
== END 2022-10-23 15:40 | disposition home or self-care (01) ==
PROVIDERS: Emergency Provider Emergency Medicine; PCP Nurse Practitioner Family
DX: F10.939 Alcohol use, unspecified with withdrawal, unspecified (principal); E66.01 Morbid (severe) obesity due to excess calories; Z87.891 Personal history of nicotine dependence
CPT/HCPCS: 80053; 83735; 85025; 85610; 93005; 96361; 96374; 96375; 99284

== ENCOUNTER → 2022-11-10 20:23 | Outpatient (CLI) | payer BC, SELFPAY | PROVIDERS: PCP Nurse Practitioner Family; Visit Provider Nurse Practitioner Family | DX: G47.30 Sleep apnea, unspecified (principal); R06.83 Snoring | CPT/HCPCS: G0399 ==

== ENCOUNTER 2023-01-05 17:12 | Emergency (ER) | payer BC, SELFPAY ==
--- NOTE | 2023-01-05 17:12 | ECG_ITS ---
APPROVED REPORT Exam: Resting ECG HR:90 bpm ECG Measurements Heart Rate 90 AXES GA 138 P 73 QRSd 85 QRS 72 QT 377 T 36 QTc 425 Conclusion SINUS RHYTHM' Left atrial abnormality BORDERLINE ECG UNCONFIRMED REPORT Electronically signed by : Guy Chao MD 01/07/2023 21:16:34
[2023-01-05 17:14] VITALS: BP 152/101; PULSE 87; RESP 18; TEMP 37.2; O2SAT 100; BMI 31.9
--- NOTE | 2023-01-05 17:25 | XR_ITS ---
FINAL REPORT CLINICAL HISTORY: Chest pain. FINDINGS: A single portable view of the chest was obtained. The heart size and pulmonary vascularity are within normal limits. The mediastinum is within normal limits. No acute pulmonary abnormality is identified. The bony thorax is intact. IMPRESSION: No active cardiopulmonary disease. Reviewed, Interpreted and Dictated by Yariel Du III, MD Transcribed by Zachary Reyes Authenticated and [facility]
[2023-01-05 17:34] LABS: Basophils % 0.5 % (0.1-2.0); Eosinophils # 0.1 K/mm3 (0.0-0.4); Eosinophils % 0.9 % (0.1-12.0); Hematocrit 44.9 % (37.0-47.0); Hemoglobin 15.6 g/dL (12.2-16.2); Lymphocytes # 1.3 K/mm3 (0.7-4.5); Lymphocytes % 18.6 % (10-50); Mean Corpuscular HGB Conc 34.6 g/dL (31.8-35.4); Mean Corpuscular Hemoglobin 34.2 pg (27.0-31.2); Mean Corpuscular Volume 98.9 fl (81-99); Mean Platelet Volume 9.1 fl (7.4-10.4); Monocytes # 0.5 K/mm3 (0.1-1.0); Monocytes % 6.9 % (1.7-9.3); Neutrophils # 5.3 K/mm3 (1.8-7.8); Neutrophils % 73.1 % (37.0-80.0); Platelet Count 276 K/mm3 (142-424); Red Blood Count 4.54 M/mm3 (4.20-5.40); Red Cell Distribution Width 13.6 % (11.5-17.5); White Blood Count 7.2 K/mm3 (4.8-10.8)
[2023-01-05 17:38] LABS: Alanine Aminotransferase 28 U/L (12-78); Albumin/Globulin Ratio 1.3 (1.1-1.8); Alkaline Phosphatase 44 U/L (38-126); Aspartate Amino Transferase 59 U/L (14-36); Bilirubin,Total 0.3 mg/dl (0.2-1.3); Blood Urea Nitrogen 11 mg/dl (7-17); Calcium 10.3 mg/dl (8.4-10.2); Carbon Dioxide 27 mmol/L (22.0-30.0); Chloride 99 mmol/L (98-107); Creatinine Clearance Estimated 234 mL/min (50-200); Estimated Glomerular Filt Rate 140 ml/min (>60); GFR (African American) 169 ML/MIN (>60); Globulin 3.8 g/dL (1.3-3.2); Glucose 93 mg/dl (74-100); Sodium 136 mmol/L (136-145); Total Protein,Serum 8.8 g/dl (6.3-8.2)
[2023-01-05 17:55] LABS: T4 (Thyroxine) 5.1 ug/dl (5.53-11.0)
[2023-01-05 18:00] LABS: Troponin I < 0.01 ng/ml (0.00-0.034)
[2023-01-05 18:09] LABS: Thyroid Stimulating Hormone 2.34 uIU/mL (0.465-4.68)
--- NOTE | 2023-01-05 18:36 | HMH.EDGENADL ---
Discharge Plan Disposition Patient Disposition: Home, Self-Care Chief Complaint: Chest Pain Prescriptions Prescriptions: No Action ondansetron 4 mg tablet,disintegrating 4 mg PO Q8H PRN (Reason: nausea and vomiting) Qty: 30 0RF cetirizine [Zyrtec] 10 mg tablet 10 mg PO DAILY Qty: 30 3RF montelukast [Singulair] 10 mg tablet 10 mg PO DAILY Qty: 30 2RF fluticasone propionate [Flonase Allergy Relief] 50 mcg/actuation spray,suspension 1 spray intranasal DAILY Qty: 16 2RF Rx Instructions: administer into each nostril peg 3350-electrolytes [GaviLyte-G] 236-22.74-6.74 -5.86 gram recon soln 240 ml PO Q10M Qty: 4000 0RF Rx Instructions: until fecal effluent is clear-- follow mailed instructions bupropion HCl 150 mg tablet extended release 24 hr See Rx Instructions .ROUTE .COMPLEX Qty: 30 2RF Dose Instruction: TAKE 1 TABLET BY MOUTH ONCE DAILY Rx Instructions: TAKE 1 TABLET BY MOUTH ONCE DAILY buspirone 15 mg tablet See Rx Instructions .ROUTE .COMPLEX Qty: 60 2RF Dose Instruction: TAKE 1 TABLET BY MOUTH TWICE DAILY Rx Instructions: TAKE 1 TABLET BY MOUTH TWICE DAILY meloxicam 7.5 mg tablet See Rx Instructions .ROUTE .COMPLEX Qty: 30 1RF Dose Instruction: TAKE 1 TABLET BY MOUTH ONCE DAILY - USE ONLY NEEDED TAKE WITH FOOD Rx Instructions: TAKE 1 TABLET BY MOUTH ONCE DAILY - USE ONLY NEEDED TAKE WITH FOOD zlupguieqc-jbmxqdxvagabx-fufy [Fioricet] 50-300-40 mg capsule 1 cap PO Q4H PRN (Reason: Headache) Qty: 10 0RF omeprazole 40 mg capsule,delayed release(DR/EC) 40 mg PO DAILY chlordiazepoxide HCl 25 mg capsule See Rx Instructions .ROUTE .COMPLEX Qty: 15 0RF Rx Instructions: 25 mg oral tablets, dispense fifteen 25mg tablets Day 1: 50mg q6h Day 2: 25mg q6h Day 3: 25mg q12h Day 4: 25mg at night Referrals Follow up/Referrals: Provider,Referral, MD [Primary Care Provider] - See instructions Activity Restrictions/Add. Instructions Additional Instructions/Restrictions: Call your family doctor to establish care for this visit to the emergency department and schedule follow-up within 48 hours to ensure improvement. If you have any worsening of your condition or any other concerning signs or symptoms, return to the emergency department or your primary care doctor for further evaluation. Clinical Impressions Clinical Impression: Chest pressure Discharge ED Provider: Jc Lam General Adult HPI General Chief complaint: Chest Pain Stated complaint: chest pain Time Seen by Provider: 01/05/23 17:21 Mode of Arrival: Ambulatory Limitations: No Limitations Description of Symptoms (Recalled from ER Triage Doc. by RN): PT REPORT CHEST PRESSURE FOR ABOUT 2 DAYS, REPORTS HEADACHE AND STOMACH BURNING DIFFICULTY TAKING A DEEP BREATH History of Present Illness HPI narrative: 37-year-old female history of hypertension currently taking 2 antihypertensive, recent gastric sleeve presenting with chest pressure. Patient states that she has had chest pressure for 2 days. Nothing makes it better or worse. It is substernal, does not radiate, not associate with shortness of breath, nausea or vomiting, or fevers or chills. Had stress like this in the past, states that she had a heart attack at [facility], but did not have stents placed and not currently on anticoagulation. Related Data Home Medications Medication Instructions Recorded Confirmed omeprazole 40 mg capsule,delayed 40 mg PO DAILY GERD 12/05/21 10/15/22 release Previous Rx's Medication Instructions Recorded gptbxcutsj-vkgqzaudclhhp-irubuxmn 1 cap PO Q4H PRN Headache #10 caps 11/21/21 50 mg-300 mg-40 mg capsule (Fioricet) peg 3350-electrolytes 236 240 ml PO Q10M #4,000 mL 09/25/22 gram-22.74 gram-6.74 gram-5.86 gram solution (GaviLyte-G) bupropion HCl 150 mg 24 hr tablet, See Rx Instructions .Route 10/07/22 ex
[2023-01-05 19:34] LABS: Coronavirus 19, PCR Not Detected (NotDetected); Influenza A, PCR Not Detected (NotDetected); Influenza B, PCR Not Detected (NotDetected)
[2023-01-05 20:36] LABS: Troponin I < 0.01 ng/ml (0.00-0.034)
[2023-01-05 21:00] VITALS: PULSE 81
[2023-01-05 21:01] VITALS: BP 144/98; PULSE 81; RESP 20; TEMP 36.7; O2SAT 97
== END 2023-01-05 21:03 | disposition home or self-care (01) ==
PROVIDERS: Emergency Provider Emergency Medicine
DX: R07.89 Other chest pain (principal); I10 Essential (primary) hypertension; Z98.84 Bariatric surgery status; Z86.79 Personal history of other diseases of the circulatory system; Z87.891 Personal history of nicotine dependence
CPT/HCPCS: 71045; 80053; 84436; 84443; 84484; 85025; 87636; 93005; 96360; 99284

== ENCOUNTER 2023-07-28 12:26 | Outpatient (CLI) | payer OTHER, SELFPAY | END 2023-07-28 23:59 | disposition home or self-care (01) | LOC: LAB.DROPOF 07-29 12:27 | PROVIDERS: PCP Family Medicine; Visit Provider Family Medicine | DX: B37.9 Candidiasis, unspecified (principal); N76.0 Acute vaginitis | CPT/HCPCS: 87086; 87210 ==

== ENCOUNTER 2023-09-04 11:52 | Emergency (ER) | payer OTHER, SELFPAY ==
--- NOTE | 2023-09-04 11:55 | ECG_ITS ---
APPROVED REPORT Exam: Resting ECG HR:90 bpm ECG Measurements Heart Rate 90 AXES NM 152 P 66 QRSd 96 QRS 83 QT 393 T 39 QTc 441 Conclusion SINUS RHYTHM NORMAL ECG UNCONFIRMED REPORT Electronically signed by : Gustavo Larson, 09/04/2023 15:49:28
[2023-09-04 12:00] VITALS: BP 144/103; PULSE 89; O2SAT 98
[2023-09-04 12:03] VITALS: BP 159/98; PULSE 85; RESP 16; TEMP 36.8; O2SAT 99; BMI 34.2
--- NOTE | 2023-09-04 12:21 | PC.NURSE ---
er at bedside
[2023-09-04 12:25] LABS: Alanine Aminotransferase 40 U/L (12-78); Albumin Level 4.5 g/dl (3.5-5.0); Albumin/Globulin Ratio 1.3 (1.1-1.8); Alkaline Phosphatase 39 U/L (38-126); Anion Gap 10.7 mEq/L (5-15); Aspartate Amino Transferase 47 U/L (14-36); Bilirubin,Total 0.4 mg/dl (0.2-1.3); Blood Urea Nitrogen 16 mg/dl (7-17); Calcium 8.9 mg/dl (8.4-10.2); Carbon Dioxide 29 mmol/L (22.0-30.0); Chloride 107 mmol/L (98-107); Creatinine Clearance Estimated 177 mL/min (50-200); Estimated Glomerular Filt Rate 94 ml/min (>60); GFR (African American) 114 ML/MIN (>60); Globulin 3.4 g/dL (1.3-3.2); Glucose 98 mg/dl (74-100); Potassium 3.7 mmoL/L (3.5-5.1); Sodium 143 mmol/L (136-145); Total Protein,Serum 7.9 g/dl (6.3-8.2)
[2023-09-04 12:30] VITALS: BP 137/91; PULSE 91; O2SAT 98
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
[2023-09-04] MEDS: LACTATED RINGERS 1000ML 1,000 ML 999 ML IV (12:42)
[2023-09-04 12:45] LABS: INR 0.88 (0.9-1.1)
[2023-09-04 12:46] LABS: Troponin I < 0.01 ng/ml (0.00-0.034)
[2023-09-04 12:52] LABS: Lipase 263 U/L (23-300); Magnesium 2.2 mg/dl (1.6-2.3)
[2023-09-04] MEDS: ONDANSETRON 4MG/2ML VIAL 4 MG IV (12:54)
[2023-09-04 13:05] VITALS: BP 147/99; PULSE 85; O2SAT 97
[2023-09-04 13:20] LABS: Basophils # 0.1 K/mm3 (0-0.2); Basophils % 0.9 % (0.1-2.0); Eosinophils # 0.1 K/mm3 (0.0-0.4); Eosinophils % 1.1 % (0.1-12.0); Hematocrit 38.5 % (37.0-47.0); Hemoglobin 12.7 g/dL (12.2-16.2); Lymphocytes # 2.8 K/mm3 (0.7-4.5); Lymphocytes % 51.4 % (10-50); Mean Corpuscular HGB Conc 32.9 g/dL (31.8-35.4); Mean Corpuscular Hemoglobin 31.9 pg (27.0-31.2); Mean Corpuscular Volume 96.7 fl (81-99); Mean Platelet Volume 8.5 fl (7.4-10.4); Monocytes # 0.4 K/mm3 (0.1-1.0); Monocytes % 7.2 % (1.7-9.3); Neutrophils # 2.2 K/mm3 (1.8-7.8); Neutrophils % 39.5 % (37.0-80.0); Platelet Count 255 K/mm3 (142-424); Red Blood Count 3.98 M/mm3 (4.20-5.40); Red Cell Distribution Width 14.2 % (11.5-17.5); White Blood Count 5.5 K/mm3 (4.8-10.8)
[2023-09-04 13:24] LABS: MANUAL DIFFERENTIAL MANUAL DIFFERENTIAL (MANUAL DIFF); Thyroid Stimulating Hormone 1.91 uIU/mL (0.465-4.68)
[2023-09-04 13:48] LABS: Lymphocytes % 51 % (10-50); Monocytes % 14 % (2-9); Neutrophils % 35 % (42-76); Nucleated Red Blood Cells 2; Total Cells Counted 100
[2023-09-04 13:49] LABS: Platelet Estimate Normal; RBC Morphology Normal
[2023-09-04 13:59] VITALS: BP 147/98; PULSE 78; RESP 16; O2SAT 97
[2023-09-04 14:04] VITALS: BP 147/98; PULSE 97; RESP 16; TEMP 36.7; O2SAT 98
== END 2023-09-04 14:11 | disposition home or self-care (01) ==
PROVIDERS: Emergency Provider Student in an Organized Health Care Education/Training Program; PCP Nurse Practitioner Family
DX: R07.9 Chest pain, unspecified (principal); R00.2 Palpitations; F41.9 Anxiety disorder, unspecified; F10.10 Alcohol abuse, uncomplicated
CPT/HCPCS: 80053; 83690; 83735; 84443; 84484; 85007; 85025; 85027; 85610; 93005; 96361; 96374; 99284; J2405; J7120

== ENCOUNTER 2024-03-24 04:04 | Emergency (ER) | payer OTHER, SELFPAY ==
[2024-03-24 04:05] VITALS: BP 167/105; PULSE 95; RESP 18; TEMP 36.7; O2SAT 99; BMI 34.9
--- NOTE | 2024-03-24 04:33 | CT_ITS ---
PROCEDURE INFORMATION: Exam: CT Head Without Contrast Exam date and time: 03/24/2024 5:11 AM Age: 39 years old Clinical indication: Injury or trauma; Fall; Other: Pain TECHNIQUE: Imaging protocol: Computed tomography of the head without contrast. Radiation optimization: All CT scans at this facility use at least one of these dose optimization techniques: automated exposure control; mA and/or kV adjustment per patient size (includes targeted exams where dose is matched to clinical indication); or iterative reconstruction. COMPARISON: CT HEAD/BRAIN WO CON 03/24/2024 5:11 AM FINDINGS: Brain: Normal. No hemorrhage. Unremarkable white matter. No mass effect. Cerebral ventricles: No ventriculomegaly. Paranasal sinuses: Visualized sinuses are unremarkable. No fluid levels. Mastoid air cells: Visualized mastoid air cells are well aerated. Bones: Unremarkable. No acute fracture. Soft tissues: Unremarkable. IMPRESSION: No acute intracranial abnormality.
--- NOTE | 2024-03-24 04:33 | CT_ITS ---
PROCEDURE INFORMATION: Exam: CT Cervical Spine Without Contrast Exam date and time: 03/24/2024 5:13 AM Age: 39 years old Clinical indication: Injury or trauma; Fall; Other: Pain TECHNIQUE: Imaging protocol: Computed tomography of the cervical spine without contrast. Radiation optimization: All CT scans at this facility use at least one of these dose optimization techniques: automated exposure control; mA and/or kV adjustment per patient size (includes targeted exams where dose is matched to clinical indication); or iterative reconstruction. COMPARISON: CT CERVICAL SPINE WO CON 08/27/2022 2:10 PM FINDINGS: Bones: No acute fracture. Normal alignment. No significant disc bulge or herniation. No severe spinal canal stenosis. No significant neural foraminal narrowing. Lungs: Lung apices are normal. Soft tissues: Unremarkable. IMPRESSION: No acute findings.
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
[2024-03-24 05:05] LABS: Urine Pregnancy, HCG Qual. Negative (Negative)
[2024-03-24] MEDS: KETOROLAC 30MG/ML VIAL 30 MG IM (05:23)
[2024-03-24 05:48] VITALS: BP 132/92; PULSE 85; RESP 20; TEMP 36.6; O2SAT 99
== END 2024-03-24 05:51 | disposition home or self-care (01) ==
PROVIDERS: Emergency Provider Emergency Medicine
DX: S06.0XAA Concussion with loss of consciousness status unknown, initial encounter (principal); M25.522 Pain in left elbow; R51.9 Headache, unspecified; F10.90 Alcohol use, unspecified, uncomplicated; W00.0XXA Fall on same level due to ice and snow, initial encounter; Y93.89 Activity, other specified; Y92.89 Other specified places as the place of occurrence of the external cause
CPT/HCPCS: 70450; 72125; 81025; 96372; 99284; J1885

== ENCOUNTER 2024-12-06 12:25 | Outpatient (CLI) | payer BC, SELFPAY ==
[2024-12-06 16:13] LABS: Hematocrit 37.9 % (37.0-47.0); Hemoglobin 12.3 g/dL (12.2-16.2); Immature Granulocytes % 0.5 %; Mean Corpuscular HGB Conc 32.5 g/dL (31.8-35.4); Mean Corpuscular Hemoglobin 30.6 pg (27.0-31.2); Mean Corpuscular Volume 94.3 fl (81-99); Nucleated Red Blood Cells % 0 %; Platelet Count 194 K/mm3 (142-424); Red Blood Count 4.02 M/mm3 (4.20-5.40); Red Cell Distribution Width-SD 51.8 fL; White Blood Count 6.3 K/mm3 (4.8-10.8)
[2024-12-06 16:37] LABS: Alanine Aminotransferase 63 U/L (12-78); Albumin Level 4.0 g/dl (3.5-5.0); Albumin/Globulin Ratio 1.4 (1.1-1.8); Alkaline Phosphatase 62 U/L (38-126); Anion Gap 14.3 mEq/L (5-15); Aspartate Amino Transferase 118 U/L (14-36); Bilirubin,Total 0.4 mg/dl (0.2-1.3); Blood Urea Nitrogen 13 mg/dl (7-17); Calcium 9.4 mg/dl (8.4-10.2); Carbon Dioxide 25 mmol/L (22.0-30.0); Chloride 102 mmol/L (98-107); Cholesterol 203 mg/dl (140-200); Creatinine,Serum 0.70 mg/dl (0.52-1.04); Estimated Glomerular Filt Rate 94 ml/min (>60); GFR (African American) 113 ML/MIN (>60); Globulin 2.8 g/dL (1.3-3.2); Glucose 102 mg/dl (74-100); HDL Cholesterol 80 mg/dl (40-60); Potassium 4.3 mmoL/L (3.5-5.1); Sodium 137 mmol/L (136-145); Total Protein,Serum 6.8 g/dl (6.3-8.2); Triglycerides 161 mg/dl (30-150)
[2024-12-06 16:52] LABS: Free T4 (Free Thyroxine) 1.00 ng/dl (0.78-2.19)
[2024-12-06 16:55] LABS: Free Thyroxine Index 2.2 ug/dL (5.93-13.13); T4 (Thyroxine) 6.0 ug/dl (5.53-11.0); Triiodothryronine (T3) Uptake 36 % (23.5-40.5)
[2024-12-06 17:07] LABS: Thyroid Stimulating Hormone 2.11 uIU/mL (0.465-4.68)
[2024-12-06 17:08] LABS: Thyroid Stimulating Hormone 2.16 uIU/mL (0.465-4.68)
[2024-12-06 20:54] LABS: Hepatitis C Ab Qual. W/ RFX NEGATIVE (Negative)
[2024-12-07 05:12] LABS: Hepatitis B Surface Antigen Negative (Negative)
== END 2024-12-06 23:59 ==
LOC: LAB.DROPOF 12-08 12:26
PROVIDERS: PCP Nurse Practitioner Family; Visit Provider Nurse Practitioner Family
DX: I10 Essential (primary) hypertension (principal); E66.9 Obesity, unspecified; Z11.59 Encounter for screening for other viral diseases
CPT/HCPCS: 80053; 80061; 84436; 84439; 84443; 84479; 84482; 85025; 86803; 87389